=== PATIENT | male | born 1930 | race African-American/Black ===

== ENCOUNTER → 2016-04-17 | Outpatient (CLI) | payer MEDICARE ==
[2015-07-29 10:15] VITALS: BP 150/81
[~2016-04-17] MED LIST: GADOBUTROL 7.5 MMOL/7.5 ML VIAL IV ONE
[2016-04-17 11:05] LABS: GFR 86.3
--- NOTE | 2016-04-17 17:41 | RAD ---
PROCEDURE MRI of the brain to include the pituitary gland without and with contrast 04/17/2016 HISTORY History of pituitary macroadenoma. TECHNIQUE Unenhanced T1 weighted sagittal and axial and FLAIR, T2 weighted, diffusion weighted and gradient echo axial images of the brain were obtained. Thin section T1 weighted sagittal and coronal and T2 weighted sagittal and coronal images through the pituitary gland were obtained. After the intravenous administration of 7 cc of Gadavist, enhanced T1 weighted axial images of the brain were obtained. Thin section enhanced T1 weighted axial and coronal images through the pituitary gland were obtained. FINDINGS Comparison study is dated 04/25/2015. The patient is status post left frontal parietal craniotomy. There is generalized parenchymal atrophy. Patchy and several small scattered areas of abnormally increased signal intensity are seen within the periventricular and subcortical white matter both cerebral hemispheres on the FLAIR and T2 weighted images consistent with areas of mild small vessel ischemic disease. These are unchanged. A 4.6 centimeter arachnoid cyst is seen posterior to the midline cerebellum, unchanged. There is no significant associated mass effect. No acute parenchymal abnormality is seen. There is no MRI evidence of acute ischemia/infarction. No abnormal area of parenchymal contrast enhancement is noted. An enhancing sella/suprasellar mass is seen which extends to the right cavernous sinus. It measures 2.4 x 2 x 2.1 centimeters and transverse, AP and craniocaudal dimensions. It is consistent with a macroadenoma. It is not significantly changed when compared to the previous examination. Mild mucosal thickening is seen throughout the paranasal sinuses. There are minimal bilateral mastoid effusions. Normal flow voids are seen within the major vascular structures surrounding the brain parenchyma. IMPRESSION Stable MRI appearance of the 2.4 centimeter macroadenoma which extends to involve the right cavernous sinus. No acute parenchymal abnormality is seen. Electronically signed by: Haroon Kyle MD (Apr 17, 2016 17:40:09)
== END | disposition home or self-care (01) ==
LOC: MRI 12:47
PROVIDERS: ATTEND Neurological Surgery
DX: D35.2 Benign neoplasm of pituitary gland (principal); Z86.39 Personal history of other endocrine, nutritional and metabolic disease
CPT/HCPCS: 36415; 70553; 82565; A9585

== ENCOUNTER → 2017-02-22 | Outpatient (CLI) | payer MEDICARE ==
[2015-07-29 10:15] VITALS: BP 150/81
--- NOTE | 2017-02-22 13:27 | RAD ---
EXAM: Soft tissue ultrasound right groin. HISTORY: Right groin swelling. COMPARISON: 04/03/2011. FINDINGS: Sonographic evaluation of the right inguinal region of concern was performed. A right inguinal lymph node measures 3.1 x 1.1 cm. Has prominent fatty hilus and is likely reactive/benign. A mass in the right region measures 4.7 x 1.8 cm. The heating repair technician notes included bowel on real-time scanning, but this is not well demonstrated on these images. The previously noted left inguinal hernia on CT is not included on this study. A small fat-containing left inguinal hernia may be present. IMPRESSION: 1. Findings consistent with a fat-containing right inguinal hernia. The heating repair technician notes some included bowel loops, but these are not well seen on static images. 2. Suspect a small fat-containing left inguinal hernia. 3. CT could further define the anatomy if there is persistent concern.
== END | disposition home or self-care (01) ==
LOC: US 08:57
PROVIDERS: ATTEND Physician Assistant
DX: E04.2 Nontoxic multinodular goiter (principal); K40.90 Unilateral inguinal hernia, without obstruction or gangrene, not specified as recurrent; R19.09 Other intra-abdominal and pelvic swelling, mass and lump; R22.9 Localized swelling, mass and lump, unspecified
CPT/HCPCS: 76881

== ENCOUNTER → 2017-03-15 | Outpatient (CLI) | payer MEDICARE ==
[2015-07-29 10:15] VITALS: BP 150/81
[~2017-03-15] MED LIST changes: -GADOBUTROL 7.5 MMOL/7.5 ML VIAL IV ONE; +IOHEXOL 300 MG/ML 100ML VIAL. IV ONE
[2017-03-15 12:08] LABS: CREATININE 0.6 mg/dL (0.7-1.3); GFR 155.3
--- NOTE | 2017-03-15 16:51 | RAD ---
CT pelvis. Right groin mass. Technique: CT pelvis with 75 mL of Omnipaque 300 with multiplanar reformats. Comparison: Study from 2011. Findings: Diffuse atherosclerotic disease of the infrarenal aorta and bilateral iliac arteries with multiple areas of high-grade stenosis in the right external iliac, common femoral and proximal superficial femoral artery. No bowel obstruction. Diffuse colonic diverticulosis. Small fat-containing right inguinal hernia noted. No inguinal adenopathy. No pelvic adenopathy. Bladder within normal limits. Multiple metallic clips is seen in the prostatic bed likely prostatectomy. Degenerative changes are seen at the bilateral SI joints and visualized lower lumbar spine with facet arthropathy. Impression: 1. Small fat-containing right inguinal hernia. 2. Diffuse atherosclerotic disease of the infrarenal aorta and bilateral iliac arteries. 3. Colonic diverticulosis without diverticulitis. PQRS Compliance Statement: One or more of the following individualized dose reduction techniques were utilized for this examination: 1. Automated exposure control 2. Adjustment of the mA and/or kV according to patient size 3. Use of iterative reconstruction technique
== END | disposition home or self-care (01) ==
LOC: CT 11:40
PROVIDERS: ATTEND Surgery
DX: K40.90 Unilateral inguinal hernia, without obstruction or gangrene, not specified as recurrent (principal); K57.30 Diverticulosis of large intestine without perforation or abscess without bleeding; I70.0 Atherosclerosis of aorta
CPT/HCPCS: 36415; 74170; 82565; 84520; Q9967

== ENCOUNTER → 2018-05-07 | Outpatient (CLI) | payer MEDICARE ==
[2015-07-29 10:15] VITALS: BP 150/81
[~2018-05-07] MED LIST changes: +GADOBUTROL 10 MMOL/10 ML VIAL IV ONE; -IOHEXOL 300 MG/ML 100ML VIAL. IV ONE
--- NOTE | 2018-05-07 15:40 | KCIC ---
MRI Brain with and without contrast History: Pituitary adenoma Technique: Multiplanar, multi sequential pre and postcontrast MR imaging was performed of the brain, also dedicated images of the pituitary gland submitted. Comparison: April 17, 2016 Findings: There is again sellar and suprasellar mass, greatest dimension about 1.9 cm CC by 2.7 cm transverse by 1.7 cm AP. Size and morphology are similar. There is involvement of the right cavernous sinus, extent of mass between the right ophthalmic and cavernous internal carotid arteries, also extent inferior to the right cavernous internal carotid artery. Superior margin of the mass is about 0.1 cm inferior to the undersurface of the right optic nerve. Ventricular size is proportionate to the sulcal spaces. There is again [id number] supratentorial atrophy. There again has been left parietal craniotomy. There is no new intra-axial mass effect, midline shift, extra-axial fluid collection. There is no nodular parenchymal or leptomeningeal enhancement. There is again karla cisterna magna. There are again a couple tiny foci of FLAIR hypertense signal of the bifrontal white matter. There is negligible patchy bilateral ethmoid air cell mucosal thickening. There is small posterior right maxillary sinus mucous retention cyst about 1.1 cm. Impression: 1. Size of sellar and suprasellar mass eccentric to the right with involvement of the right cavernous sinus is stable, likely macroadenoma. 2. There is no new significant intracranial abnormality. There is again supratentorial atrophy. Electronically signed by: Juan Barnes MD (05/07/2018 3:35 PM) [id number]
== END | disposition home or self-care (01) ==
LOC: KCIC MRI 13:03
PROVIDERS: ATTEND Neurological Surgery
DX: D35.2 Benign neoplasm of pituitary gland (principal); J34.1 Cyst and mucocele of nose and nasal sinus
CPT/HCPCS: 70553; 82565; A9585

== ENCOUNTER → 2018-05-16 | Outpatient (CLI) | payer MEDICARE ==
[~2018-05-16] MED LIST changes: -GADOBUTROL 10 MMOL/10 ML VIAL IV ONE; +IOHEXOL 240 MG/ML 50ML VIAL. PO ONE; +IOHEXOL 300 MG/ML 100ML VIAL. IV ONE; +LISI10TA2 PO; +[UNRECOGNIZED DRUG - REMARK]
--- NOTE | 2018-05-16 14:07 | RAD ---
CT abdomen pelvis with contrast dated 05/16/2018. Comparison made to 03/15/2017. Clinical data indication: Weight loss. History of prostate cancer. TECHNIQUE: Contiguous axial imaging the abdomen and pelvis performed after the administration of 75 cc Omnipaque 300. One or more of the following individualized dose reduction techniques were utilized for this examination: 1. Automated exposure control 2. Adjustment of the mA and/or kV according to patient size 3. Use of iterative reconstruction technique. FINDINGS: Limited images of lung bases are clear. Heart size within normal limits. No pleural or pericardial effusion. Low-density lesion of the posterior right lobe liver on image 11 measures 1.1 cm, unchanged from August 2010 study. There is mild intrahepatic and extrahepatic biliary ductal dilatation to the level of the ampulla, increased from prior study. There is a small vague area of low density at the pancreatic head/uncinate process on axial image 25 that was not definitely present from prior exam. This measures about 9 mm maximum dimension. The gallbladder is distended without calcific stone or wall thickening. The pancreas is otherwise unremarkable. No significant inflammatory stranding surrounding the gland. Spleen is normal in size. Adrenal glands and kidneys are unremarkable. No hydronephrosis. Partially opacified GI tract normal in caliber and contour. No focal bowel wall thickening. There are scattered diverticula throughout the colon. No paracolonic inflammatory changes. The appendix is not clearly identified. No inflammatory changes in the right lower quadrant. Abdominal aorta normal in caliber. No retroperitoneal or mesenteric lymph node adenopathy. Images of pelvis show nondistended urinary bladder. The prostate gland is surgically absent. No free pelvic fluid or pelvic lymphadenopathy. Atherosclerotic changes appear to result in moderate to high-grade narrowing of the proximal common femoral artery on the right. Bone windows show no acute findings. Multilevel spondylosis. IMPRESSION: 1. Mild intrahepatic and extra hepatic biliary ductal dilatation, new from prior study. There is a questionable low density lesion of the pancreatic head/uncinate process measuring about 9 mm in size. Although this could represent a mild pancreatitis or groove pancreatitis, a developing pancreatic malignancy cannot be excluded. Correlate with laboratory values. Potentially a MRI may provide additional information. 2. There is a low-density lesion in the right lobe liver that is unchanged from Mar 2011 study and is likely benign. 3. Diverticulosis. 4. Status post prostatectomy. 5. Possible moderate to high-grade narrowing of the proximal common femoral artery on the right. Correlate clinically. Electronically signed by: Truong Fisher MD (05/16/2018 2:03 PM) [facility]
== END | disposition home or self-care (01) ==
LOC: CT 13:00
PROVIDERS: ATTEND Family Medicine
DX: K82.8 Other specified diseases of gallbladder (principal); K57.30 Diverticulosis of large intestine without perforation or abscess without bleeding; I70.201 Unspecified atherosclerosis of native arteries of extremities, right leg; Z85.46 Personal history of malignant neoplasm of prostate
CPT/HCPCS: 74177; Q9966; Q9967

== ENCOUNTER 2018-06-12 19:06 | Inpatient (IN) | payer MEDICARE ==
[~2018-06-12] VITALS: Ht 182.9 cm; Wt 60.8 kg
[2018-06-12] MEDS ORDERED: IV NORMAL SALINE 1000ML BAG 1,000 ML IV SCH (20:18)
[2018-06-12 20:38] LABS: CALCIUM 9.2 mg/dL (8.5-10.1); CREATININE 0.8 mg/dL (0.7-1.3); GFR 111.2; POTASSIUM 3.9 mmol/L (3.5-5.1)
[2018-06-12 20:45] LABS: BASO # 0.1 x10^3/uL (0.0-0.2); BASO % 1 % (0-3); EOS # 0.1 x10^3/uL (0.0-0.7); EOS % 2 % (0-3); HEMATOCRIT 31.7 % (39.0-53.0); HEMOGLOBIN 10.9 g/dL (13.0-17.5); LYMPH % 74 % (24-48); MEAN CORPUSCULAR HEMOGLOBIN 27 pg (25-35); MEAN CORPUSCULAR HGB CONC 35 g/dL (31-37); MEAN CORPUSCULAR VOLUME 79 fL (79-100); MONO # 0.1 x10^3/uL (0.0-1.1); MONO % 2 % (0-9); NEUT # 0.9 x10^3uL (1.8-7.7); NEUT % 21 % (31-73); PLATELET COUNT 208 x10^3/uL (140-400); RED CELL DISTRIBUTION WIDTH 18.8 % (11.5-14.5); WHITE BLOOD COUNT 4.1 x10^3/uL (4.0-11.0)
[2018-06-12 20:53] LABS: ALBUMIN 3.4 g/dL (3.4-5.0); TOTAL BILIRUBIN 23.9 mg/dL (0.2-1.0); TOTAL PROTEIN 7.2 g/dL (6.4-8.2)
[2018-06-12 21:07] LABS: DIRECT BILIRUBIN 18.6 mg/dL (0.0-0.2)
--- NOTE | 2018-06-12 21:29 | PHYS DOC ---
Past Medical History Past Medical History: Hypertension Past Surgical History: Other Additional Past Surgical Histo: prostate surgery Rt cancer 2002 Alcohol Use: None Drug Use: None Adult General Chief Complaint Chief Complaint: ABNORMAL LABS HPI HPI Patient is an 87-year-old male who presents to be evaluated for admission for abnormal lab values. Patient indicates that he has been losing weight for quite some time. He does indicate that at times he has some abdominal discomfort denies any abdominal pain at this time. He denies any chest pain or shortness of breath. He denies any nausea or vomiting. He states the weight loss is simply because he has no appetite. Review of Systems Review of Systems Constitutional: Denies fever or chills [] Respiratory: Denies cough or shortness of breath [] Cardiovascular: No additional information not addressed in HPI [] GI: Denies abdominal pain, nausea, vomiting or diarrhea [] Integument: Denies rash or skin lesions [] Neurologic: Denies headache, focal weakness or sensory changes [] All other systems were reviewed and found to be within normal limits, except as documented in this note. Current Medications Current Medications Current Medications Medications (Trade) Dose Ordered Sig/Jason Start Time Stop Time Status Last Admin Dose Admin Sodium Chloride 1,000 ml @ 125 mls/hr Q8H 06/12/18 21:24 06/13/18 21:23 06/12/18 23:39 125 MLS/HR Allergies Allergies Allergies Coded Allergies Type Severity Reaction Last Updated Verified No Known Drug Allergies 07/29/15 No Physical Exam Physical Exam Constitutional: Cachectic, no acute distress, non-toxic appearance. [] HENT: Normocephalic, atraumatic, bilateral external ears normal, oropharynx moist, no oral exudates, nose normal. [] Eyes: PERRLA, EOMI, conjunctiva normal, no discharge. [] Neck: Normal range of motion, no tenderness, supple, no stridor. [] Cardiovascular: Regular rate and rhythm[] Lungs & Thorax: Bilateral breath sounds clear to auscultation [] Abdomen: Bowel sounds normal, soft, no tenderness. [] Skin: Warm, dry, no erythema, no rash. [] Extremities: No tenderness, no cyanosis, no clubbing, ROM intact, no edema. [] Neurologic: Alert and oriented X 3, no focal deficits noted. [] Current Patient Data Vital Signs Vital Signs Date Time Temp Pulse Resp B/P (MAP) Pulse Ox O2 Delivery O2 Flow Rate FiO2 06/12/18 21:20 60 20 146/68 (94) 100 Room Air 06/12/18 19:49 96.7 96.7 Lab Values Laboratory Tests Test 06/12/18 20:00 White Blood Count 4.1 x10^3/uL (4.0-11.0) Red Blood Count 4.00 x10^6/uL (4.30-5.70) L Hemoglobin 10.9 g/dL (13.0-17.5) L Hematocrit 31.7 % (39.0-53.0) L Mean Corpuscular Volume 79 fL (79-100) Mean Corpuscular Hemoglobin 27 pg (25-35) Mean Corpuscular Hemoglobin Concent 35 g/dL (31-37) Red Cell Distribution Width 18.8 % (11.5-14.5) H Platelet Count 208 x10^3/uL (140-400) Neutrophils (%) (Auto) 21 % (31-73) L Lymphocytes (%) (Auto) 74 % (24-48) H Monocytes (%) (Auto) 2 % (0-9) Eosinophils (%) (Auto) 2 % (0-3) Basophils (%) (Auto) 1 % (0-3) Neutrophils # (Auto) 0.9 x10^3uL (1.8-7.7) L Lymphocytes # (Auto) 3.0 x10^3/uL (1.0-4.8) Monocytes # (Auto) 0.1 x10^3/uL (0.0-1.1) Eosinophils # (Auto) 0.1 x10^3/uL (0.0-0.7) Basophils # (Auto) 0.1 x10^3/uL (0.0-0.2) Sodium Level 137 mmol/L (136-145) Potassium Level 3.9 mmol/L (3.5-5.1) Chloride Level 97 mmol/L (98-107) L Carbon Dioxide Level 27 mmol/L (21-32) Anion Gap 13 (6-14) Blood Urea Nitrogen 12 mg/dL (8-26) Creatinine 0.8 mg/dL (0.7-1.3) Estimated GFR (Cockcroft-Gault) 111.2 Glucose Level 92 mg/dL (70-99) Calcium Level 9.2 mg/dL (8.5-10.1) Total Bilirubin 23.9 mg/dL (0.2-1.0) H Direct Bilirubin 18.6 mg/dL (0.0-0.2) H Aspartate Amino Transferase (AST) 387 U/L (15-37) H Alanine Aminotransferase (ALT) 249 U/L (16-63) H Alkaline Phosphatase 1107 U/L (46-116) H Total Protein 7.2 g/dL (6.4-8.2) Albumin 3.4 g/dL (3.4-5.0) Lipase 155 U/L (73-393) Laboratory Tests 06/12/18 20:00 Laboratory Tests 06/12/18 20:00 EKG EKG [] Radiology/Procedures Radiology/Procedures [] Course & Med Decision Making Course & Med Decision Making Pertinent Labs and Imaging studies reviewed. (See chart for details) [] Dragon Disclaimer Dragon Disclaimer This electronic medical record was generated, in whole or in part, using a voice recognition dictation system. Departure Departure Impression: Primary Impression: Jaundice Additional Impression: Elevated transaminase level Disposition: ADMITTED INPATIENT Admitting Physician: Rob Hatfield Condition: GOOD Referrals: ROB HATFIELD MD (PCP) Problem Qualifiers JORDYN WEI Jr. DO Jun 12, 2018 21:29
[2018-06-12] MEDS ORDERED: ONDANSETRON PF 4 MG/2 ML VIAL. IV PRN (21:30)
[2018-06-12] MEDS ORDERED: fentaNYL PF VIAL 100 MCG/2 ML VIAL IV PRN (21:30)
[2018-06-12] MEDS: IV NORMAL SALINE 1000ML BAG 1,000 ML IV SCH (23:39)
--- NOTE | 2018-06-12 23:40 | NUR ---
ADMISSION NOTE: Patient arrived to room 548 via wheelchair accompanied by ED staff. All belongings present. Bed low, locked, call light within reach. Educated patient on how to use call light. Admission questionnaire performed. IV fluids administered. Patient has no complaints at this time. Will continue to monitor.
[2018-06-13] VITALS (9 sets, daily range): BP systolic 97–156; BP diastolic 59–83
[2018-06-13] MEDS ORDERED: [UNRECOGNIZED DRUG - REMARK] (05:34)
[2018-06-13 07:17] LABS: BASO % 0 % (0-3); EOS % 1 % (0-3); HEMATOCRIT 26.4 % (39.0-53.0); HEMOGLOBIN 8.9 g/dL (13.0-17.5); LYMPH # 2.3 x10^3/uL (1.0-4.8); LYMPH % 68 % (24-48); MEAN CORPUSCULAR HEMOGLOBIN 26 pg (25-35); MEAN CORPUSCULAR HGB CONC 34 g/dL (31-37); MEAN CORPUSCULAR VOLUME 78 fL (79-100); MONO # 0.5 x10^3/uL (0.0-1.1); MONO % 15 % (0-9); NEUT # 0.5 x10^3uL (1.8-7.7); NEUT % 16 % (31-73); PLATELET COUNT 154 x10^3/uL (140-400); RED BLOOD COUNT 3.37 x10^6/uL (4.30-5.70); RED CELL DISTRIBUTION WIDTH 18.9 % (11.5-14.5); WHITE BLOOD COUNT 3.4 x10^3/uL (4.0-11.0)
[2018-06-13 07:46] LABS: ALBUMIN 2.5 g/dL (3.4-5.0); ALBUMIN/GLOBULIN RATIO 0.7 (1.0-1.7); CALCIUM 8.2 mg/dL (8.5-10.1); CREATININE 0.7 mg/dL (0.7-1.3); GFR 129.7; POTASSIUM 3.8 mmol/L (3.5-5.1); TOTAL BILIRUBIN 17.9 mg/dL (0.2-1.0); TOTAL PROTEIN 6.1 g/dL (6.4-8.2)
[2018-06-13] MEDS: IV NORMAL SALINE 1000ML BAG 1,000 ML IV SCH (07:58)
[2018-06-13] MEDS ORDERED: PHENYLEPHRINE 10 MG/ML VIAL. ONE (08:00)
[2018-06-13] MEDS ORDERED: fentaNYL PF VIAL 100 MCG/2 ML VIAL IV PRN ×4 (08:15→08:45)
[2018-06-13] MEDS ORDERED: MIDAZOLAM HCL/PF 2 MG/2 ML VIAL. IV PRN (08:15)
[2018-06-13] MEDS ORDERED: LIDOCAINE 1% PF 2 ML VIAL. ID PRN ×2 (08:15→08:45)
[2018-06-13] MEDS ORDERED: IV RINGERS,LACTATED 1000ML 1,000 ML IV SCH (08:42)
[2018-06-13] MEDS ORDERED: HYDROmorphone 2 MG/ML VIAL IV PRN (08:45)
[2018-06-13] MEDS ORDERED: MORPHINE SULFATE 2 MG/ML VIAL. IV PRN (08:45)
[2018-06-13] MEDS ORDERED: ONDANSETRON PF 4 MG/2 ML VIAL. IV PRN (08:45)
[2018-06-13] MEDS ORDERED: PROCHLORPERAZINE 10 MG/2 ML VIAL. IV PRN (08:45)
--- NOTE | 2018-06-13 08:50 | PDOC ---
Provider Note Provider Note [id number] STACEY REESE MD Jun 13, 2018 08:50
--- NOTE | 2018-06-13 09:14 | HP ---
ADMIT DATE: CHIEF COMPLAINT: Weakness and jaundice. HISTORY OF PRESENT ILLNESS: An 87-year-old black male, well known to our practice, presented several weeks ago with weakness and fatigue. He was found to have very high bilirubin and CT scan raised the question of a possible enlargement of the head of the pancreas. CA 19-9 in the office was normal and the patient has not followed up well as suggested for further testing, including MRI of the abdomen and for further lab. He came into the ER as a direct admission, primarily to get these studies accomplished and try to make a definite diagnosis. He also has a history of dementia, takes no meds at home. No other serious medical problems known. PAST MEDICAL HISTORY: Unremarkable. ALLERGIES: No allergies. MEDICATIONS: No medications. SOCIAL HISTORY: Unknown to me at this time. He has a son who is his primary campground caretaker. FAMILY HISTORY: Unremarkable. REVIEW OF SYSTEMS: No other complaints except with fairly significant weight loss in the last several months, unknown amount. OBJECTIVE: ENT: Sclerae are very icteric, otherwise unremarkable. NECK: No masses, nodes or bruits. LUNGS: Clear. ABDOMEN: Tender in the right upper quadrant. No definite masses or guarding are felt. EXTREMITIES: Reasonably good pedal and radial pulses. No joint or skin lesions. NEUROLOGIC: Physiologic. No asterixis, no focal findings. He is definitely mildly confused about the situation. ASSESSMENT: Weight loss, obstructive jaundice and possible pancreatic head mass. At his age with his weight loss, certainly a malignant diagnosis such as pancreatic or common ductal cancer is most likely diagnosis at this time. Underlying dementia is ongoing. PLAN: Abdominal sonogram, hydration, and GI consultation and anticipating a need for ERCP and possible stenting. STACEY REESE MD DR: AIDEN/rob JOB#: [id number] / [id number]
--- NOTE | 2018-06-13 09:30 | PDOC2 ---
GI CONSULT Reason For Consult: Elevated transaminases and bili HPI: HPI: 87 y/o male - d/w Dr. Hatfield this morning. Has been seeing Dr. Ramirez but difficulty w/ follow-up w/ dementia. Pt reports loss of appetite and weight loss, denies pain. Labs notable microcytic anemia, hypobilirubinemia, and elevated Alk Phos. Normal plt. Pending INR. Dr. Hatfield reports CA19-[address] from last month showed mild intra and extrahepatic biliary ductal dilatation , possible lesion in pancreatic head, and stable right hepatic lesion. Abd US in 2016 was unrevealing. Looks like he had EGD w/ esophageal dilation w/ Dr. Olsen in 2016 - procedure report unavailable. PMH: PMH: per chart - HTN, prostate cancer, dementia, right inguinal hernia left knee surgery, prostatectomy FH: Family History: No pertinent hx Social History: Smoke: No ALCOHOL: other (used to drink scotch) ROS: Per HPI Vitals: Vitals: Vital Signs Date Time Temp Pulse Resp B/P (MAP) Pulse Ox O2 Delivery O2 Flow Rate FiO2 06/13/18 07:00 98.1 51 16 97/60 (72) 98 Room Air 98.1 Labs: Labs: Laboratory Tests Test 06/12/18 20:00 06/13/18 06:40 White Blood Count 4.1 x10^3/uL (4.0-11.0) 3.4 x10^3/uL (4.0-11.0) Red Blood Count 4.00 x10^6/uL (4.30-5.70) 3.37 x10^6/uL (4.30-5.70) Hemoglobin 10.9 g/dL (13.0-17.5) 8.9 g/dL (13.0-17.5) Hematocrit 31.7 % (39.0-53.0) 26.4 % (39.0-53.0) Mean Corpuscular Volume 79 fL (79-100) 78 fL (79-100) Mean Corpuscular Hemoglobin 27 pg (25-35) 26 pg (25-35) Mean Corpuscular Hemoglobin Concent 35 g/dL (31-37) 34 g/dL (31-37) Red Cell Distribution Width 18.8 % (11.5-14.5) 18.9 % (11.5-14.5) Platelet Count 208 x10^3/uL (140-400) 154 x10^3/uL (140-400) Neutrophils (%) (Auto) 21 % (31-73) 16 % (31-73) Lymphocytes (%) (Auto) 74 % (24-48) 68 % (24-48) Monocytes (%) (Auto) 2 % (0-9) 15 % (0-9) Eosinophils (%) (Auto) 2 % (0-3) 1 % (0-3) Basophils (%) (Auto) 1 % (0-3) 0 % (0-3) Neutrophils # (Auto) 0.9 x10^3uL (1.8-7.7) 0.5 x10^3uL (1.8-7.7) Lymphocytes # (Auto) 3.0 x10^3/uL (1.0-4.8) 2.3 x10^3/uL (1.0-4.8) Monocytes # (Auto) 0.1 x10^3/uL (0.0-1.1) 0.5 x10^3/uL (0.0-1.1) Eosinophils # (Auto) 0.1 x10^3/uL (0.0-0.7) 0.0 x10^3/uL (0.0-0.7) Basophils # (Auto) 0.1 x10^3/uL (0.0-0.2) 0.0 x10^3/uL (0.0-0.2) Sodium Level 137 mmol/L (136-145) 140 mmol/L (136-145) Potassium Level 3.9 mmol/L (3.5-5.1) 3.8 mmol/L (3.5-5.1) Chloride Level 97 mmol/L (98-107) 105 mmol/L (98-107) Carbon Dioxide Level 27 mmol/L (21-32) 25 mmol/L (21-32) Anion Gap 13 (6-14) 10 (6-14) Blood Urea Nitrogen 12 mg/dL (8-26) 9 mg/dL (8-26) Creatinine 0.8 mg/dL (0.7-1.3) 0.7 mg/dL (0.7-1.3) Estimated GFR (Cockcroft-Gault) 111.2 129.7 Glucose Level 92 mg/dL (70-99) 68 mg/dL (70-99) Calcium Level 9.2 mg/dL (8.5-10.1) 8.2 mg/dL (8.5-10.1) Total Bilirubin 23.9 mg/dL (0.2-1.0) 17.9 mg/dL (0.2-1.0) Direct Bilirubin 18.6 mg/dL (0.0-0.2) Aspartate Amino Transf (AST/SGOT) 387 U/L (15-37) 293 U/L (15-37) Alanine Aminotransferase (ALT/SGPT) 249 U/L (16-63) 201 U/L (16-63) Alkaline Phosphatase 1107 U/L (46-116) 868 U/L (46-116) Total Protein 7.2 g/dL (6.4-8.2) 6.1 g/dL (6.4-8.2) Albumin 3.4 g/dL (3.4-5.0) 2.5 g/dL (3.4-5.0) Lipase 155 U/L (73-393) BUN/Creatinine Ratio 13 (6-20) Albumin/Globulin Ratio 0.7 (1.0-1.7) Allergies: Coded Allergies: No Known Drug Allergies (Unverified , 07/29/15) Medications: Current Medications Medications (Trade) Dose Ordered Sig/Jason Route PRN Reason Start Time Stop Time Status Last Admin Dose Admin Sodium Chloride 1,000 ml @ 1,000 mls/hr Q1H IV 06/12/18 20:18 06/12/18 21:17 DC 06/12/18 20:37 Sodium Chloride 1,000 ml @ 125 mls/hr Q8H IV 06/12/18 21:24 06/13/18 08:48 DC 06/13/18 07:58 Imaging: Imaging: CT A/P 05/16/18 FINDINGS: Limited images of lung bases are clear. Heart size within normal limits. No pleural or pericardial effusion. Low-density lesion of the posterior right lobe liver on image 11 measures 1.1 cm , unchanged from August 2010 study. There is mild intrahepatic and extrahepatic biliary ductal dilatation to the level of the ampulla, increased from prior study. There is a small vague area of low density at the pancreatic head/ uncinate process on axial image 25 that was not definitely present from prior exam. This measures about 9 mm maximum dimension. The gallbladder is distended without calcific stone or wall thickening.The pancreas is otherwise unremarkable. No significant inflammatory stranding surrounding the gland. Spleen is normal in size. Adrenal glands and kidneys are unremarkable. No hydronephrosis.Partially opacified GI tract normal in caliber and contour. No focal bowel wall thickening. There are scattered diverticula throughout the colon. No paracolonic inflammatory changes. The appendix is not clearly identified. No inflammatory changes in the right lower quadrant. Abdominal aorta normal in caliber. No retroperitoneal or mesenteric lymph node adenopathy. Images of pelvis show nondistended urinary bladder. The prostate gland is surgically absent. No free pelvic fluid or pelvic lymphadenopathy. Atherosclerotic changes appear to result in moderate to high-grade narrowing of the proximal common femoral artery on the right. Bone windows show no acute findings. Multilevel spondylosis. IMPRESSION: 1. Mild intrahepatic and extra hepatic biliary ductal dilatation, new from prior study. There is a questionable low density lesion of the pancreatic head/ uncinate process measuring about 9 mm in size. Although this could represent a mild pancreatitis or groove pancreatitis, a developing pancreatic malignancy cannot be excluded. Correlate with laboratory values. Potentially a MRI may provide additional information. 2. There is a low-density lesion in the right lobe liver that is unchanged from Mar 2011 study and is likely benign. 3. Diverticulosis. 4. Status post prostatectomy. 5. Possible moderate to high-grade narrowing of the proximal common femoral artery on the right. Correlate clinically. Abd US 12/09/15 IMPRESSION: No bile duct dilation. No evidence of splenomegaly. PE: GEN: NAD, thin HEENT: +sclerae icteric LUNGS: CTAB HEART: bradycardic ABD: NABS, non-distended, non-tender, fullness RUQ EXTREMITY: No edema SKIN: No rashes, no jaundice NEURO/PSYCH: A & O 3 - probably forgetful A/P: A/P: Weight loss, anorexia Obstructive jaundice Abnormal CT - last month w/ biliary dilatation and possible pancreatic lesion H/o esophageal dilation CRC screen - unclear Anemia Dementia, h/o prostate cancer -- D/w RN - pt has signed ERCP consents. I also called his son Haroon and left a message. Will plan to proceed w/ ERCP this morning. ROZINA GONZALEZ Jun 13, 2018 09:30
[2018-06-13 09:56] LABS: PROTHROMBIN TIME PATIENT 13.7 SEC (11.7-14.0)
[2018-06-13] MEDS: IV RINGERS,LACTATED 1000ML 1,000 ML IV SCH ×2 (10:12→16:04)
--- NOTE | 2018-06-13 10:40 | EKG ---
[facility] [address] [place] [id number] Test Date: 2018-06-12 Test Time: 20:03:56 Pat Name: DARRELL REESE Department: Room: 548 1 Gender: M Career Manager: : [id number] Requested By: JORDYN WEI Order Number: [id number] Reading MD: Jone Alan MD Measurements Intervals [place] Rate: 69 P: -90 NM: 134 QRS: -44 QRSD: 84 T: 6 QT: 458 QTc: 492 Interpretive Statements PROBABLE SR PVC'S Electronically Signed On 06-17-2018 7:58:15 [employer] by Jone Alan MD
[2018-06-13 10:43] LABS: % BASOS 1 % (0-3); % EOS 1 % (0-5); % LYMPHS 36 % (24-48); % MONOS 1 % (0-10); % SEGS 61 % (35-66); ANISOCYTOSIS MOD; TARGET CELLS PRESENT
[2018-06-13 10:44] LABS: PLT ESTIMATE DECREASED (ADEQUATE)
[2018-06-13] MEDS ORDERED: LIDOCAINE 2% PF 5 ML VIAL. ONE (10:46)
[2018-06-13] MEDS ORDERED: SUCCINYLCHOLINE 200 MG/10 ML VIAL. ONE (10:46)
[2018-06-13] MEDS ORDERED: PROPOFOL 20 ML IV ONE (10:46)
[2018-06-13] MEDS ORDERED: FAMOTIDINE 20 MG/2 ML VIAL ONE (10:46)
[2018-06-13] MEDS ORDERED: ONDANSETRON PF 4 MG/2 ML VIAL. ONE (10:46)
[2018-06-13] MEDS ORDERED: DEXAMETHASONE SOD PHOS 20 MG/5 ML VIAL. ONE (10:46)
[2018-06-13] MEDS ORDERED: IOHEXOL 300 MG/ML 100ML VIAL. ONE (10:48)
--- NOTE | 2018-06-13 10:53 | NUR ---
SW following for discharge planning. Discussed with RN, pt is from home with . RN advised no SW needs at this time. SW will continue to follow.
--- NOTE | 2018-06-13 12:12 | PDOC4 ---
Operative Note Operative Note ERCP with sphincterotomy/stent placment/brush cytology Meds propofol per anesthesia Pre-op dx jaundice/abnl cT scan post-op dx biliary stricture consistent pancreatic malignancy s/p brush cytology and 10 Fr 12 cm stent placement plan advance diet and activity in am LFTS/amylase/lipase in am JILLIAN FAUSTIN MD Jun 13, 2018 12:12
--- NOTE | 2018-06-13 12:29 | RAD ---
C-arm fluoroscopy with fluoroscopic spot views Clinical indications: Jaundice. Elevated liver enzymes. ERCP. Total fluoroscopic time: 3.56 minutes. Total fluoroscopic spot views: 7. IMPRESSION: Fluoroscopic spot views demonstrate cannulization and retrograde opacification of a dilated extrahepatic biliary tree with placement of a biliary stent. See operative report for full details. Electronically signed by: Mani Dean MD (06/13/2018 12:26 PM) [facility]
[2018-06-13] MEDS: POTASSIUM CL 20MEQ D5-0.45NACL 1,000 ML IV SCH ×2 (13:33→23:14)
--- NOTE | 2018-06-13 16:40 | RAD ---
Limited abdomen ultrasound study Clinical indications: Obstructive jaundice. FINDINGS: The gallbladder is distended with sludge. There is hypoechoic wall thickening of the gallbladder measuring 5 mm in thickness. The pancreas is poorly visualized due to overlying bowel gas. No focal aneurysmal dilatation of the abdominal aorta is seen. The intrahepatic portion of the IVC is patent. No hepatic mass is seen. The liver measures 15.2 cm in length. There is intrahepatic and extrahepatic biliary ductal dilatation. The extra hepatic bile duct measures 10 mm in caliber. The length of the right kidney is 10.1 cm. No hydronephrosis or renal mass or perinephric fluid collection is seen on this side. IMPRESSION: Gallbladder is distended with biliary sludge. Wall thickening of the gallbladder is seen consistent with cholecystitis. There is biliary ductal dilatation. This may be due to a distal common bile duct stone or obstruction. Electronically signed by: Mani Dean MD (06/13/2018 4:37 PM) [facility]
[2018-06-14 03:59] VITALS: BP 154/75
[2018-06-14 06:52] LABS: ALBUMIN 2.6 g/dL (3.4-5.0); ALBUMIN/GLOBULIN RATIO 0.6 (1.0-1.7); CALCIUM 8.3 mg/dL (8.5-10.1); CREATININE 0.8 mg/dL (0.7-1.3); DIRECT BILIRUBIN 8.4 mg/dL (0.0-0.2); GFR 111.2; POTASSIUM 4.1 mmol/L (3.5-5.1); TOTAL BILIRUBIN 10.7 mg/dL (0.2-1.0); TOTAL PROTEIN 6.8 g/dL (6.4-8.2)
[2018-06-14 07:00] VITALS: BP 157/85
--- NOTE | 2018-06-14 08:48 | PDOC ---
Progress Note ROS ROS No nausea No vomiting No pain No rash Vital Sign Vital Signs Vital Signs Date Time Temp Pulse Resp B/P (MAP) Pulse Ox O2 Delivery O2 Flow Rate FiO2 06/14/18 07:00 64 18 157/85 (109) 98 Room Air 06/14/18 03:59 97.7 97.7 06/13/18 12:32 4 Physical Exam PHYSICAL EXAM GENERAL: NAD, Alert HEENT: PERRL, OC/OP NECK: Supple, no JVD, no LN LUNGS: Clear HEART: S1S2, no gallop, no murmur ABD: Soft, NT, no organomegaly, no rebound EXT: No edema, no cyanosis VERTICAL PUNCH OPERATOR: Alert, oriented x 3, no focal neurologic deficit SKIN: No rash IV: ok Labs Lab Laboratory Tests Test 06/13/18 09:37 06/14/18 05:20 Prothrombin Time 13.7 SEC (11.7-14.0) Prothromb Time International Ratio 1.1 (0.8-1.1) Ammonia 14 mcmol/L (11-34) Sodium Level 138 mmol/L (136-145) Potassium Level 4.1 mmol/L (3.5-5.1) Chloride Level 104 mmol/L (98-107) Carbon Dioxide Level 24 mmol/L (21-32) Anion Gap 10 (6-14) Blood Urea Nitrogen 7 mg/dL (8-26) Creatinine 0.8 mg/dL (0.7-1.3) Estimated GFR (Cockcroft-Gault) 111.2 BUN/Creatinine Ratio 9 (6-20) Glucose Level 148 mg/dL (70-99) Calcium Level 8.3 mg/dL (8.5-10.1) Total Bilirubin 10.7 mg/dL (0.2-1.0) Direct Bilirubin 8.4 mg/dL (0.0-0.2) Aspartate Amino Transf (AST/SGOT) 200 U/L (15-37) Alanine Aminotransferase (ALT/SGPT) 181 U/L (16-63) Alkaline Phosphatase 895 U/L (46-116) Total Protein 6.8 g/dL (6.4-8.2) Albumin 2.6 g/dL (3.4-5.0) Albumin/Globulin Ratio 0.6 (1.0-1.7) Amylase Level 80 U/L (25-115) Lipase 108 U/L (73-393) Objective Assessment An 87 years old male patient with 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 Liver function tests trending down. Plan Plan of Care * Continue with supportive care. * Advance diet as tolerated. * Monitor LFTs. * Await for cytology report. * Discuss with patient and family regarding goal of care to help guide further management. Thank you for involving us in the care of this interesting patient. Nutrition Consultation Dietary Evaluation: Recommendations by RD: Increase Calorie Intake, Protein supplementation Comments: ensure tid Expected Outcomes/Goals: to meet > 75% est nutr needs Interpretation of weight loss: >5% in 1 month Malnutrition Findings: Body Fat Depletion (Non Severe: Mild Depletion Weight Status: Underweight PARMINDER BLANTON MD Jun 14, 2018 08:48
[2018-06-14] MEDS: POTASSIUM CL 20MEQ D5-0.45NACL 1,000 ML IV SCH ×3 (09:39→20:21)
--- NOTE | 2018-06-14 10:35 | PDOC ---
Subjective: Subjective: Patient was examined at bed side. No acute events over night. He reports he lost more than 27 ibs in the last few months. 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 No acute events overnight with no evidence of cholangitis. Liver function tests trending down. Plan of Care * Continue with supportive care. * Advance diet as tolerated. * Monitor LFTs. * Await for cytology report. * Discuss with patient and family regarding goal of care to help guide further management. Thank you for involving us in the care of this interesting patient,. PARMINDER BLANTON MD Jun 14, 2018 10:35
[2018-06-14 11:19] VITALS: BP 149/85
[2018-06-14 15:00] VITALS: BP 145/89
--- NOTE | 2018-06-14 15:00 | NUR ---
Pt reporting abdominal discomfort with tightness, nausea, abdominal pain. Assisted to sit up in chair, given call light and gonzales for nausea. Pt then began spitting dark yellow-brown bile and sputum into gonzales. Call to Dr. Olsen/troy Cisneros to give zofran 4mg Q8hrs, call to PCP for pain control. Diet reduced to clears again.
[2018-06-14] MEDS ORDERED: MORPHINE SULFATE 2 MG/ML VIAL. IV PRN (16:00)
[2018-06-14] MEDS ORDERED: ONDANSETRON PF 4 MG/2 ML VIAL. IV PRN (16:15)
--- NOTE | 2018-06-14 19:21 | RAD ---
One view abdomen pelvis HISTORY: Abdominal pain and distention and nausea Supine AP view abdomen pelvis There is multiple dilated air-filled loops of small bowel. There is a relative paucity of colonic bowel gas. There is a stent in the common bile duct. There is no obvious free air on this supine view. There is multiple surgical clips in the pelvis. IMPRESSION: Abnormal bowel gas pattern consistent with a mid small bowel obstruction. Electronically signed by: Dylan Hamlin III, MD (06/14/2018 7:18 PM) [id number]
[2018-06-14 19:59] VITALS: BP 160/84
--- NOTE | 2018-06-14 21:33 | PN ---
DATE: 06/14/2018 LOCATION: He is in room 548. SUBJECTIVE: The patient is awake, alert, states he feels better. He is very pleasant, wonders why his urine became brown all of a sudden and I have explained to him the obstructive jaundice and that a stent has been placed and with labs looking better this morning that it should resolve and he should feel better. I have told him at this point in time we do not know for sure what is going on there, but there is a suspicion of malignancy. OBJECTIVE: Vital signs are stable. He is afebrile. He is awake and alert. LABORATORY DATA: Liver function tests are decreasing this morning with bilirubin down to 8.4 from 18 yesterday. Transaminases are decreasing as well as the alk phosphatase. ERCP note is appreciated with brushings and washings done and stent placement. No definite stone noted. His coagulations were normal upon admission. IMPRESSION: 1. Obstructive jaundice, improving after stent placement, likely due to malignancy with pathology pending. 2. Weight loss. 3. History of dementia, which would seem to be mild as he was quite interactive at this point in time. PLAN: At this point, we would plan on awaiting results of pathology with plans to follow at that point in time. NERY WILLSON MD DR: ELENA/rob JOB#: [id number] / [id number]
[2018-06-14 23:59] VITALS: BP 135/76
[2018-06-15 03:00] VITALS: BP 140/76
[2018-06-15 05:41] LABS: ALBUMIN 2.7 g/dL (3.4-5.0); DIRECT BILIRUBIN 6.6 mg/dL (0.0-0.2); TOTAL BILIRUBIN 8.5 mg/dL (0.2-1.0); TOTAL PROTEIN 6.8 g/dL (6.4-8.2)
[2018-06-15] MEDS: POTASSIUM CL 20MEQ D5-0.45NACL 1,000 ML IV SCH ×2 (06:24→16:39)
[2018-06-15 07:17] VITALS: BP 137/77
--- NOTE | 2018-06-15 09:32 | PDOC ---
Subjective: Subjective: Patient was seen and examined this morning. He reports the pain that he had yesterday in the afternoon has improved. No nausea or vomiting this morning. He had bowel movement over night. Objective: Vital Signs: Vital Signs Date Time Temp Pulse Resp B/P (MAP) Pulse Ox O2 Delivery O2 Flow Rate FiO2 06/15/18 08:00 Room Air 06/15/18 07:17 98.2 69 18 137/77 (97) 98 98.2 Imaging: [facility] [address] [place] [address] IMAGING REPORT Signed PATIENT: DARRELL REESE ACCOUNT: [id number] : 1930 LOCATION: [facility]TH AGE: 87 SEX: M EXAM STATUS: ADM IN ORD. PHYSICIAN: JILLIAN FAUSTIN MD REASON: abdominal pain, distention, nausea PROCEDURE: KUB One view abdomen pelvis HISTORY: Abdominal pain and distention and nausea Supine AP view abdomen pelvis There is multiple dilated air-filled loops of small bowel. There is a relative paucity of colonic bowel gas. There is a stent in the common bile duct. There is no obvious free air on this supine view. There is multiple surgical clips in the pelvis. IMPRESSION: Abnormal bowel gas pattern consistent with a mid small bowel obstruction. Electronically signed by: Nina Beckett III, MD (06/14/2018 7:18 PM) [id number] DICTATED and SIGNED BY: NINA BECKETT III, MD DATE: 06/14/181914 PE: GEN: NAD HEENT: Atraumatic, PERRLA LUNGS: CTAB HEART: RRR, no murmurs ABD: Has old lower midline surgical scar. 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 No acute events overnight with no evidence of cholangitis. Liver function tests trending down. Patient had abdominal pain, nausea and vomiting yesterday. KUB done 06/14 was notable for abnormal bowel gas pattern consistent with a mid small bowel obstruction. However, he is doing well with no pain this morning. He had bowel movement overnight. No nausea or vomting this morning. Has soft abdomen with no tenderness or guarding. Plan of Care * Continue with supportive care. * CLD * Encourage to ambulate. * IVFs * Monitor lytes and replace as needed. * Monitor LFTs. * Await for cytology report. * Discuss with patient and family regarding goal of care to help guide further management. Thank you for involving us in the care of this interesting patient,. PARMINDER BLANTON MD Jun 15, 2018 09:32
[2018-06-15 11:04] VITALS: BP 132/75
[2018-06-15 15:00] VITALS: BP 130/70
[2018-06-15 19:00] VITALS: BP 132/73
[2018-06-15 23:00] VITALS: BP 123/63
[2018-06-16] MEDS: POTASSIUM CL 20MEQ D5-0.45NACL 1,000 ML IV SCH ×2 (02:30→14:38)
[2018-06-16 03:00] VITALS: BP 121/61
--- NOTE | 2018-06-16 06:04 | PN ---
DATE: 06/15/2018 LOCATION: He is in room 548. SUBJECTIVE: The patient has just had a little bit of vomiting, but overall states he has felt good for most of the day. He has ongoing anorexia per nursing and nursing has no serious concerns. OBJECTIVE: VITAL SIGNS: Stable. He is afebrile. O2 sats remained good on room air. CHEST: Clear. HEART: Regular. ABDOMEN: Benign. Liver function tests including bilirubin continue to fall slowly. He does appear less jaundiced. IMPRESSION: 1. Biliary obstruction with jaundice, likely due to malignant disease with biopsies pending. 2. Weight loss. 3. History of dementia. PLAN: Continue present care. We will continue to follow labs with the anemia since admission. I will recheck another CBC in the morning. Otherwise, follow labs and await biopsy reports for definitive treatment. NERY WILLSON MD DR: ELENA/rob JOB#: [id number] / [id number]
[2018-06-16 07:00] VITALS: BP 118/55
[2018-06-16 08:50] LABS: BASO % 0 % (0-3); EOS # 0.1 x10^3/uL (0.0-0.7); EOS % 2 % (0-3); HEMATOCRIT 30.1 % (39.0-53.0); LYMPH # 1.1 x10^3/uL (1.0-4.8); LYMPH % 27 % (24-48); MEAN CORPUSCULAR HEMOGLOBIN 27 pg (25-35); MEAN CORPUSCULAR HGB CONC 33 g/dL (31-37); MEAN CORPUSCULAR VOLUME 82 fL (79-100); MONO # 0.3 x10^3/uL (0.0-1.1); MONO % 7 % (0-9); NEUT # 2.7 x10^3uL (1.8-7.7); NEUT % 65 % (31-73); PLATELET COUNT 167 x10^3/uL (140-400); RED BLOOD COUNT 3.68 x10^6/uL (4.30-5.70); RED CELL DISTRIBUTION WIDTH 19.6 % (11.5-14.5); WHITE BLOOD COUNT 4.2 x10^3/uL (4.0-11.0)
--- NOTE | 2018-06-16 09:02 | PDOC ---
SUBJECTIVE Subjective Denies pain. Continues to have diarrhea 2-3 times daily per pt. Cdiff pending. OBJECTIVE Objective Reviewed. Vital Signs Vital Signs Date Time Temp Pulse Resp B/P (MAP) Pulse Ox O2 Delivery O2 Flow Rate FiO2 06/16/18 07:00 97.8 63 16 118/55 (76) 96 Room Air 97.8 06/16/18 03:00 98.0 67 18 121/61 (81) 96 Room Air 4.0 98.0 06/15/18 23:00 98.6 65 18 123/63 (83) 98 Room Air 4.0 98.6 06/15/18 19:00 98.6 66 18 132/73 (92) 98 Room Air 4.0 98.6 06/15/18 15:00 98.0 78 18 130/70 (90) 95 Room Air 98.0 06/15/18 11:04 98.0 75 18 132/75 (94) 95 Room Air 98.0 I & O Intake and Output 06/16/18 06:59 Intake Total 1200 ml Balance 1200 ml Intake Oral 200 ml IV Total 1000 ml # Voids 2 # Bowel Movements 4 PHYSICAL EXAM Physical Exam Alert, cachectic RRR CTAB No edema Calm, cooperative ASSESSMENT/PLAN Assessment/Plan Obstructive jaundice, likely due to malignancy, biopsies pending. Cachexia Mild cognitive deficit H/o prostate cancer, in remission for many years Bili continues to improve s/p stent placement Await biopsies Palliative care consult COMMENT Lab Laboratory Tests Test 06/16/18 07:00 White Blood Count 4.2 x10^3/uL (4.0-11.0) Red Blood Count 3.68 x10^6/uL (4.30-5.70) Hemoglobin 10.0 g/dL (13.0-17.5) Hematocrit 30.1 % (39.0-53.0) Mean Corpuscular Volume 82 fL (79-100) Mean Corpuscular Hemoglobin 27 pg (25-35) Mean Corpuscular Hemoglobin Concent 33 g/dL (31-37) Red Cell Distribution Width 19.6 % (11.5-14.5) Platelet Count 167 x10^3/uL (140-400) Neutrophils (%) (Auto) 65 % (31-73) Lymphocytes (%) (Auto) 27 % (24-48) Monocytes (%) (Auto) 7 % (0-9) Eosinophils (%) (Auto) 2 % (0-3) Basophils (%) (Auto) 0 % (0-3) Neutrophils # (Auto) 2.7 x10^3uL (1.8-7.7) Lymphocytes # (Auto) 1.1 x10^3/uL (1.0-4.8) Monocytes # (Auto) 0.3 x10^3/uL (0.0-1.1) Eosinophils # (Auto) 0.1 x10^3/uL (0.0-0.7) Basophils # (Auto) 0.0 x10^3/uL (0.0-0.2) Nutrition Consultation Dietary Evaluation: Recommendations by RD: Increase Calorie Intake, Protein supplementation Comments: ensure tid Expected Outcomes/Goals: to meet > 75% est nutr needs Interpretation of weight loss: >5% in 1 month Malnutrition Findings: Body Fat Depletion (Non Severe: Mild Depletion Weight Status: Underweight ETHEL REEVES MD Jun 16, 2018 09:02
[2018-06-16 09:23] LABS: ALBUMIN 2.3 g/dL (3.4-5.0); ALBUMIN/GLOBULIN RATIO 0.6 (1.0-1.7); CALCIUM 7.5 mg/dL (8.5-10.1); CREATININE 0.8 mg/dL (0.7-1.3); DIRECT BILIRUBIN 5.3 mg/dL (0.0-0.2); GFR 111.2; POTASSIUM 3.7 mmol/L (3.5-5.1); TOTAL BILIRUBIN 6.4 mg/dL (0.2-1.0); TOTAL PROTEIN 6.2 g/dL (6.4-8.2)
[2018-06-16 11:09] VITALS: BP 117/68
--- NOTE | 2018-06-16 11:39 | PDOC ---
Objective: Objective: Reviewed w/ RNs - received in report he was to be NPO per GI but has multiple diets ordered (?), has significant diarrhea, ate 25% of dinner last night. Vital Signs: Vital Signs Date Time Temp Pulse Resp B/P (MAP) Pulse Ox O2 Delivery O2 Flow Rate FiO2 06/16/18 11:09 98.1 65 18 117/68 (84) 98 Room Air 98.1 06/16/18 03:00 4.0 Labs: Laboratory Tests Test 06/16/18 07:00 White Blood Count 4.2 x10^3/uL Red Blood Count 3.68 x10^6/uL Hemoglobin 10.0 g/dL Hematocrit 30.1 % Mean Corpuscular Volume 82 fL Mean Corpuscular Hemoglobin 27 pg Mean Corpuscular Hemoglobin Concent 33 g/dL Red Cell Distribution Width 19.6 % Platelet Count 167 x10^3/uL Neutrophils (%) (Auto) 65 % Lymphocytes (%) (Auto) 27 % Monocytes (%) (Auto) 7 % Eosinophils (%) (Auto) 2 % Basophils (%) (Auto) 0 % Neutrophils # (Auto) 2.7 x10^3uL Lymphocytes # (Auto) 1.1 x10^3/uL Monocytes # (Auto) 0.3 x10^3/uL Eosinophils # (Auto) 0.1 x10^3/uL Basophils # (Auto) 0.0 x10^3/uL Sodium Level 135 mmol/L Potassium Level 3.7 mmol/L Chloride Level 102 mmol/L Carbon Dioxide Level 24 mmol/L Anion Gap 9 Blood Urea Nitrogen 4 mg/dL Creatinine 0.8 mg/dL Estimated GFR (Cockcroft-Gault) 111.2 BUN/Creatinine Ratio 5 Glucose Level 59 mg/dL Calcium Level 7.5 mg/dL Total Bilirubin 6.4 mg/dL Direct Bilirubin 5.3 mg/dL Aspartate Amino Transf (AST/SGOT) 113 U/L Alanine Aminotransferase (ALT/SGPT) 130 U/L Alkaline Phosphatase 698 U/L Total Protein 6.2 g/dL Albumin 2.3 g/dL Albumin/Globulin Ratio 0.6 PE: GEN: NAD NEURO/PSYCH: sleeping, not awakened A/P: Obstructive jaundice, biliary stricture, concern for pancreatic malignancy S/p ERCP w/ brushings (results pending) and stent placement on 06/13/18 - bili improving Abnormal KUB on 06/14 Diarrhea - C Diff pending -- It's unclear what happened w/ NPO order but he tolerated PO yesterday w/o n/v and has been stooling. Seems reasonable to resume clears and recheck KUB to settle the issue. If tolerates and x-ray is unrevealing, ADAT. Await palliative care discussion, brushing results, and C Diff results. ROZINA GONZALEZ Jun 16, 2018 11:39
--- NOTE | 2018-06-16 12:08 | NUR ---
SW following. Discussed with RN, RN advised Palliative consult has been entered. SW will continue to follow for discharge planning.
[2018-06-16] MEDS ORDERED: LISI10TA2 PO (12:51)
--- NOTE | 2018-06-16 12:52 | PDOC2 ---
PALLIATIVE CARE Palliative Care Note Palliative Care Consult requested by Dr. Ramirez to address goals of care Medical Condition per medical record ?Pancreatic Ca Bx. pending. diarrhea --c-diff pending. Obstructive jaundice, likely due to malignancy, Cachexia Mild cognitive deficit H/o prostate cancer, in remission for many years Bili continues to improve s/p stent placement Met with patient. Alert. Discussed medical condition. Will need input from son. Patient states is patient at [facility]. Code Status; Full Code. Attempted to reach Haroon/son [phone]. Message to return call. SAMIRA BUCIO Jun 16, 2018 12:52
--- NOTE | 2018-06-16 14:14 | RAD ---
EXAM: Abdomen acute complete. HISTORY: C. Difficile. Small bowel obstruction. COMPARISON: CT dated 05/16/2018. FINDINGS: A frontal view of the chest and frontal upright and supine views of the abdomen are obtained. There are prominent air-filled loops of small bowel throughout the abdomen. There is a delay stent overlying the right upper and mid abdomen. There are multiple clips overlying the pelvis. There is no free air. There is a small nodular opacity overlying the right upper lobe which appears to be partially calcified, likely a granuloma. There is biapical pleural thickening likely due to scarring. There is a small nodule overlying the right lower lobe likely due to a nipple shadow. IMPRESSION: 1. Nonspecific air-filled small bowel throughout the abdomen. There is no transition point to suggest obstruction. 2. No acute pulmonary finding. 3. Small nodule overlying the right upper lobe, possibly due to a partially calcified granuloma. The absence of prior studies to confirm stability, sonographic follow-up can be performed to confirm stability. There is also a small nodule overlying the right lower lobe on a single projection which is likely due to a nipple shadow. Electronically signed by: Radha Chaudhari MD (06/16/2018 2:06 PM) [facility]
[2018-06-16 14:42] VITALS: BP 122/64
[2018-06-16 19:00] VITALS: BP 135/70
--- NOTE | 2018-06-16 21:30 | NUR ---
Glucose on am labs 59. Checked this evening BS at this time 50. Gave 4oz of OJ. Notified Dr. Ramirez. No new orders at this time. Rechecked BS 56, gave additional OJ and alberta. Pt stated that he was not able to eat or drink anymore because it was causing him to be nauseated.
[2018-06-16 22:32] VITALS: BP 151/88
[2018-06-17] MEDS: POTASSIUM CL 20MEQ D5-0.45NACL 1,000 ML IV SCH ×3 (02:10→22:35)
[2018-06-17 02:53] VITALS: BP 134/63
[2018-06-17 05:38] LABS: ALBUMIN 2.3 g/dL (3.4-5.0); DIRECT BILIRUBIN 4.6 mg/dL (0.0-0.2); TOTAL BILIRUBIN 5.6 mg/dL (0.2-1.0)
[2018-06-17 07:00] VITALS: BP 126/54
--- NOTE | 2018-06-17 08:03 | PDOC ---
SUBJECTIVE Subjective Feeling ok this AM. Diarrhea continuing. Cdiff was negative. Suspect diarrhea related to bile acids. Palliative consulted yesterday, final path still pending. OBJECTIVE Objective Reviewed. Vital Signs Vital Signs Date Time Temp Pulse Resp B/P (MAP) Pulse Ox O2 Delivery O2 Flow Rate FiO2 06/17/18 07:00 98.1 54 18 126/54 (78) Room Air 98.1 06/17/18 02:53 97.7 76 18 134/63 (86) 97 Room Air 97.7 06/16/18 22:32 97.7 74 18 151/88 (109) 99 Room Air 97.7 06/16/18 19:00 97.6 61 18 135/70 (91) 94 Room Air 97.6 06/16/18 14:42 96.8 67 16 122/64 (83) 100 Room Air 96.8 06/16/18 11:09 98.1 65 18 117/68 (84) 98 Room Air 98.1 I & O Intake and Output 06/17/18 07:00 Intake Total 2780 ml Balance 2780 ml Intake Oral 780 ml IV Total 2000 ml # Voids 4 # Bowel Movements 3 PHYSICAL EXAM Physical Exam Alert, cachectic RRR CTAB No edema Calm, cooperative ASSESSMENT/PLAN Assessment/Plan Obstructive jaundice, improved, likely due to malignancy, biopsies pending. Cachexia Mild cognitive deficit H/o prostate cancer, in remission for many years Mild asymptomatic hypoglycemia related to poor intake, on D5 IVF Diarrhea, suspect related to bile acids Bili continues to improve s/p stent placement Await biopsies Palliative care consulted, still awaiting final diagnosis Advance diet to full liquids then advance as tolerated COMMENT Lab Laboratory Tests Test 06/17/18 04:40 Total Bilirubin 5.6 mg/dL (0.2-1.0) Direct Bilirubin 4.6 mg/dL (0.0-0.2) Aspartate Amino Transf (AST/SGOT) 96 U/L (15-37) Alanine Aminotransferase (ALT/SGPT) 112 U/L (16-63) Alkaline Phosphatase 619 U/L (46-116) Total Protein 6.0 g/dL (6.4-8.2) Albumin 2.3 g/dL (3.4-5.0) Nutrition Consultation Dietary Evaluation: Recommendations by RD: Increase Calorie Intake, Protein supplementation Comments: ensure tid Expected Outcomes/Goals: to meet > 75% est nutr needs Interpretation of weight loss: >5% in 1 month Malnutrition Findings: Body Fat Depletion (Non Severe: Mild Depletion Weight Status: Underweight ETHEL REEVES MD Jun 17, 2018 08:03
[2018-06-17 10:31] VITALS: BP 134/63
--- NOTE | 2018-06-17 12:52 | PDOC ---
Objective: Objective: Per RN - got diarrhea on the wall once, trying advanced diet. Palliative care following - attempted to reach son. Vital Signs: Vital Signs Date Time Temp Pulse Resp B/P (MAP) Pulse Ox O2 Delivery O2 Flow Rate FiO2 06/17/18 10:31 97.6 63 18 134/63 (86) 97 Room Air 4.0 97.6 Labs: Laboratory Tests Test 06/17/18 04:40 Total Bilirubin 5.6 mg/dL Direct Bilirubin 4.6 mg/dL Aspartate Amino Transf (AST/SGOT) 96 U/L Alanine Aminotransferase (ALT/SGPT) 112 U/L Alkaline Phosphatase 619 U/L Total Protein 6.0 g/dL Albumin 2.3 g/dL Imaging: Acute Abd Series 06/16/18 IMPRESSION: 1. Nonspecific air-filled small bowel throughout the abdomen. There is no transition point to suggest obstruction. 2. No acute pulmonary finding. 3. Small nodule overlying the right upper lobe, possibly due to a partially calcified granuloma. The absence of prior studies to confirm stability, sonographic follow-up can be performed to confirm stability. There is also a small nodule overlying the right lower lobe on a single projection which is likely due to a nipple shadow. PE: GEN: NAD NEURO/PSYCH: sleeping, not awakened A/P: Concern for pancreatic malignancy - s/p ERCP w/ brushings (results pending) and stent placement - bili improved Diarrhea - C Diff neg -- Try Imodium. Await PC discussion. ROZINA GONZALEZ Jun 17, 2018 12:52
[2018-06-17] MEDS ORDERED: LOPERAMIDE 2 MG CAPSULE PO PRN (13:00)
--- NOTE | 2018-06-17 14:11 | NUR ---
SW following. Discussed with RN. Palliative meeting this afternoon. Still waiting on biopsy results. JULIEN will continue to follow.
[2018-06-17 15:00] VITALS: BP 112/48
--- NOTE | 2018-06-17 16:24 | PDOC2 ---
PALLIATIVE CARE Palliative Care Note Palliative Care Patient alert. Received permission to meet with son Haroon. unable to attend meeting. One son . One daughter live in [place]. Reviewed current medical condition Obstructive jaundice, improved, likely due to malignancy, biopsies pending. Cachexia Mild cognitive deficit H/o prostate cancer, in remission for many years Mild asymptomatic hypoglycemia related to poor intake, on D5 IVF Diarrhea, Biopsy reports still pending. Discussed options for care. Hospice if focus is comfort. Haroon will want his mother to be part of those decisions. May need Oncology input. Discussed Code Status with Haroon and patient. Patient Requests DNR/DNI. Criag is supportive of this decisions. Understands without this attempt likely he would . Patient has always enjoyed outside activity. Would not want to be in a facility. Plan: DNR/DNI. Await Bx. report for final decisions. SAMIRA BUCIO Jun 17, 2018 16:23
--- NOTE | 2018-06-17 18:07 | PATHOLOGY ---
Note [facility] Accession Number: [id number] TESTS RESULT FLAG UNITS REF RANGE LAB Clinician Provided Cytology Information No. of containers..01 Other (Miscellaneous) Source: CBD BRUSHING DIAGNOSIS: 02 CBD BRUSHING SUSPICIOUS. FEW CLUSTERS OF ATYPICAL CELLS IDENTIFIED SUSPICIOUS FOR MALIGNANCY. THE CASE IS ALSO EXAMINED BY DR. WAGNER, CYTOPATHOLOGIST, WHO CONCURS WITH THE DIAGNOSIS. Signed out by: Cholo Marin MD, Pathologist NPI- [id number] Performed by: Kaz Bell, Hearing Aid Mechanic ([facility]) Gross description: 01 30ML, RED TINTED, CLOUDY /LCS FLAG LEGEND: L-Low Normal,H-High Normal,LL-Alert Low,HH-Alert High <-Panic Low,>-Panic High,A-Abnormal,AA-Critical Abnormal Performed at: [facility] [place] [address] [place] [address] Ramon Gusman MD, 02 [facility] [place] [address] [place] [address] Cholo Marin MD, Specimen Comment: A courtesy copy of this report has been sent to Specimen Comment: [phone], , . Specimen Comment: Report sent to Specimen Comment: A duplicate report has been generated due to demographic updates. Performed at: 01 [facility] [address], [place], [place] [id number] MD Ramon Gusman MD Phone: [phone]
[2018-06-17 19:00] VITALS: BP 111/49
[2018-06-17 23:00] VITALS: BP 115/52
[2018-06-18 03:00] VITALS: BP 114/62
[2018-06-18 07:00] VITALS: BP 102/41
--- NOTE | 2018-06-18 08:03 | PDOC ---
SUBJECTIVE Subjective Doing ok this morning. Diarrhea has improved. Says his PO intake is good. Met with palliative care yesterday, agreed to DNR. Will consider options further when is available to discuss hospice. OBJECTIVE Objective Reviewed. Vital Signs Vital Signs Date Time Temp Pulse Resp B/P (MAP) Pulse Ox O2 Delivery O2 Flow Rate FiO2 06/18/18 03:00 97.2 63 20 114/62 (79) 99 97.2 06/17/18 23:00 98.8 82 20 115/52 (73) 91 98.8 06/17/18 20:00 Room Air 06/17/18 19:00 98.8 82 18 111/49 (69) 91 98.8 06/17/18 15:00 98.2 58 16 112/48 (69) 94 Room Air 98.2 06/17/18 10:31 97.6 63 18 134/63 (86) 97 Room Air 4.0 97.6 I & O Intake and Output 06/18/18 07:00 Intake Total 1720 ml Balance 1720 ml Intake Oral 720 ml IV Total 1000 ml # Voids 4 # Bowel Movements 3 PHYSICAL EXAM Physical Exam Alert, cachectic, jaundiced RRR CTAB Abd soft, NT/ND, normal BS No edema Calm, cooperative ASSESSMENT/PLAN Assessment/Plan Obstructive jaundice, improved, likely due to malignancy, brushing shows clusters of atypical cells, concerning for malignancy. Cachexia Mild cognitive deficit H/o prostate cancer, in remission for many years Mild asymptomatic hypoglycemia related to poor intake, on D5 IVF Diarrhea, improved Bili continues to improve s/p stent placement Onc consulted Palliative care following Discussed with nursing to watch PO intake today. If good, could stop IVFs. Nutrition Consultation Dietary Evaluation: Recommendations by RD: Increase Calorie Intake, Protein supplementation Comments: ensure tid Expected Outcomes/Goals: to meet > 75% est nutr needs- goal not met, goal ongoing Interpretation of weight loss: >5% in 1 month Malnutrition Findings: Body Fat Depletion (Non Severe: Mild Depletion Weight Status: Underweight ETHEL REEVES MD Jun 18, 2018 08:03
[2018-06-18] MEDS: POTASSIUM CL 20MEQ D5-0.45NACL 1,000 ML IV SCH (08:45)
--- NOTE | 2018-06-18 09:04 | PDOC2 ---
CONSULT Date of Consult Date of Consult DATE: 06/18/18 TIME: 08:52 Reason for consultation: Concern for pancreas malignancy Consult: Hematology oncology, Dr. Issa Castro History of present illness: He is an 87-year-old -[place] man with a history of prostate cancer remotely, recent weight loss, and abdominopelvic CT on 16 May showing biliary dilatation with a 9 mm pancreas head process and likely benign liver lesions stable since 2010, who was admitted with jaundice, new, acute, painless, associated with the noted pancreas mass, biliary ductal dilatation, and marked elevation in bilirubin, with bilirubin improved after ERCP from 23 down to 5, brushings showed suspicion for malignancy with a few clusters of atypical cells though malignancy has not been confirmed. 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 Past surgical history: Prostatectomy ERCP Right inguinal hernia Left knee surgery Allergies: No known drug allergies Medications: See attached list Social history: , his is in [employer] for knee issues, has a son who helps out, he used to drink scotch in the past, no tobacco, lives at home, states he lives an active lifestyle for his age, would like to know if cancer is present and would like to know his options for treatment as needed Family history: And uncle had prostate cancer Review of systems: Diarrhea with watery foods improved with solid foods, jaundice improved after stenting, weight loss, unsure how much, anorexia, otherwise 10 point review of systems negative Physical exam: Vitals reviewed Gen.: Thin elderly man resting in bed, in no acute distress HEENT: mucous membranes moist, head normocephalic atraumatic Neck: Supple, no lymphadenopathy Lymph nodes: No palpable lymphadenopathy neck or axilla Lungs: Breathing comfortably on room air, no evidence of respiratory distress Heart: Regular rate and rhythm Abdomen: Soft, nontender, nondistended Extremities: No cyanosis or edema Skin: No obvious rashes or skin breakdown Neuro: Alert and oriented 3 Psych: Normal mood and affect Lab reviewed: Total bili 23.9 down to 5.6 Alkaline phosphatase 619 AST 96 ALT 12 Ammonia 14 Lipase normal Creatinine 0.8 INR 1.1 White count 4.2 with 2700 neutrophils, hemoglobin 10 with an MCV of 82, platelet count 167 C. difficile negative Rads reviewed: Ultrasound showed distended gallbladder with sludge and wall thickening and biliary ductal dilatation Abdominopelvic CT 16 May 2018 w/ biliary dilation, 9 mm pancreas head process, likely benign liver lesion similar to 2011, peripheral arterial disease in right common femoral artery, diverticuli, status post prostatectomy Case discussed with: Patient, social work, records reviewed in [facility] and [facility] including labs and radiology and pathology, please see note for summary details. Assessment and Plan: He is an 87-year-old AA man with 9 mm pancreas head process seen on CT, painless jaundice, concern for pancreas cancer, reports of negative CA-19-9, and weight loss. ERCP brushings were suspicious but not diagnostic for malignancy. Concern for pancreas cancer: We'll order a PET scan hopefully to be done tomorrow as an outpatient, do recommend DC today after blood work is obtained, palliative care has evaluated him, he does have mild dementia but is able to answer questions, states he lives a pretty active lifestyle (up and about >1/2 the day he tells me), would want to know if cancer was present and would want to know his options, therefore we will go ahead and proceed with diagnostic work up and offer him a treatment plan and reevaluate need for palliative care as time progresses. Jaundiced: Improved after stenting Anemia: We'll check iron panel and retake History of prostate cancer: We'll check PSA disposition: Recommend DC today, will order PET scan as outpatient and have him follow-up once results available with likely EUS prn Thank you kindly for this consultation, and please do not hesitate to call with any further questions. Social History No ALCOHOL: other (used to drink scotch) Current Problem List Problem List Problems Medical Problems: (1) Elevated transaminase level Status: Acute (2) Jaundice Status: Acute Current Medications Current Medications Current Medications Sodium Chloride 1,000 ml @ 1,000 mls/hr Q1H IV Last administered on 06/12/18at 20:37; Start 06/12/18 at 20:18; Stop 06/12/18 at 21:17; Status DC Ondansetron HCl (Zofran) 4 mg PRN Q8HRS PRN IV NAUSEA/VOMITING; Start 06/12/18 at 21:30; Stop 06/13/18 at 21:29; Status DC Fentanyl Citrate (Fentanyl 2ml Vial) 50 mcg PRN Q1HR PRN IV PAIN; Start at 21:30; Stop 06/13/18 at 21:29; Status DC Sodium Chloride 1,000 ml @ 125 mls/hr Q8H IV Last administered on 06/13/18at 07: 58; Start 06/12/18 at 21:24; Stop 06/13/18 at 08:48; Status DC Midazolam HCl (Versed) 2 mg PRN 1X PRN IV PRIOR TO PROCEDURE; Start 06/13/18 at 08:15; Stop 06/14/18 at 08:14; Status DC Fentanyl Citrate (Fentanyl 2ml Vial) 25 mcg PRN Q5MIN PRN IV X 2 DOSES FOR PAIN ; Start 06/13/18 at 08:15; Stop 06/14/18 at 08:14; Status DC Fentanyl Citrate (Fentanyl 2ml Vial) 50 mcg PRN Q5MIN PRN IV X 2 DOSES FOR PAIN ; Start 06/13/18 at 08:15; Stop 06/14/18 at 08:14; Status DC Ringer's Solution 1,000 ml @ 125 mls/hr Q8H IV Last administered on 06/13/18at 10:12; Start 06/13/18 at 08:04; Stop 06/13/18 at 17:01; Status DC Lidocaine HCl (Xylocaine-Mpf 1% 2ml Vial) 2 ml 1X PRN PRN ID IV START; Start at 08:15; Stop 06/14/18 at 08:14; Status DC Ondansetron HCl (Zofran) 4 mg PRN Q6HRS PRN IV NAUSEA/VOMITING; Start 06/13/18 at 08:45; Stop 06/14/18 at 08:44; Status DC Fentanyl Citrate (Fentanyl 2ml Vial) 25 mcg PRN Q5MIN PRN IV MILD PAIN; Start 06/13/18 at 08:45; Stop 06/14/18 at 08:44; Status UNV Fentanyl Citrate (Fentanyl 2ml Vial) 50 mcg PRN Q5MIN PRN IV MODERATE TO SEVERE PAIN; Start 06/13/18 at 08:45; Stop 06/14/18 at 08:44; Status UNV Morphine Sulfate (Morphine Sulfate) 1 mg PRN Q10MIN PRN IV SEVERE PAIN; Start 06/13/18 at 08:45; Stop 06/14/18 at 08:44; Status DC Ringer's Solution 1,000 ml @ 30 mls/hr Q24H IV ; Start 06/13/18 at 08:42; Stop 06/13/18 at 20:41; Status DC Lidocaine HCl (Xylocaine-Mpf 1% 2ml Vial) 2 ml 1X PRN PRN ID IV START; Start at 08:45; Stop 06/14/18 at 08:44; Status UNV Hydromorphone HCl (Dilaudid) 0.5 mg PRN Q10MIN PRN IV SEV PAIN, Second choice; Start 06/13/18 at 08:45; Stop 06/14/18 at 08:44; Status DC Prochlorperazine Edisylate (Compazine) 5 mg PACU PRN PRN IV NAUSEA, MRX1; Start 06/13/18 at 08:45; Stop 06/14/18 at 08:44; Status DC Potassium Chloride/Dextrose/ Sod Cl 1,000 ml @ 100 mls/hr Q10H IV Last administered on 06/17/18at 22:35; Start 06/13/18 at 08:45 Succinylcholine Chloride (Anectine) 200 mg STK-MED ONCE .ROUTE ; Start 06/13/18 at 10:46; Stop 06/13/18 at 10:47; Status DC Propofol 20 ml @ As Directed STK-MED ONCE IV ; Start 06/13/18 at 10:46; Stop 06/13 at 10:47; Status DC Dexamethasone Sodium Phosphate (Decadron) 20 mg STK-MED ONCE .ROUTE ; Start 06/13 at 10:46; Stop 06/13/18 at 10:47; Status DC Famotidine (Pepcid Vial) 20 mg STK-MED ONCE .ROUTE ; Start 06/13/18 at 10:46; Stop 06/13/18 at 10:47; Status DC Lidocaine HCl (Lidocaine Pf 2% Vial) 5 ml STK-MED ONCE .ROUTE ; Start 06/13/18 at 10:46; Stop 06/13/18 at 10:47; Status DC Ondansetron HCl (Zofran) 4 mg STK-MED ONCE .ROUTE ; Start 06/13/18 at 10:46; Stop 06/13/18 at 10:47; Status DC Iohexol (Omnipaque 300 Mg/ml) 100 ml STK-MED ONCE .ROUTE ; Start 06/13/18 at 10: 48; Stop 06/13/18 at 10:49; Status DC Morphine Sulfate (Morphine Sulfate) 2 mg PRN Q4HRS PRN IV PAIN; Start 06/14/18 at 16:00 Ondansetron HCl (Zofran) 4 mg PRN Q8HRS PRN IV NAUSEA/VOMITING Last administered on 06/14/18at 16:55; Start 06/14/18 at 16:15 Phenylephrine HCl (Karel-Synephrine Inj) 10 mg STK-MED ONCE .ROUTE ; Start at 08:00; Stop 06/16/18 at 08:50; Status DC Loperamide HCl (Imodium) 2 mg PRN TID PRN PO DIARRHEA Last administered on at 14:30; Start 06/17/18 at 13:00 Active Scripts Active Reported Lisinopril 10 Mg Tablet 10 Mg PO DAILY Allergies Allergies: Coded Allergies: No Known Drug Allergies (Unverified , 06/13/18) Vitals VITALS Vital Signs Date Time Temp Pulse Resp B/P (MAP) Pulse Ox O2 Delivery O2 Flow Rate FiO2 06/18/18 07:00 98.1 72 17 102/41 (61) 98 Room Air 98.1 06/17/18 10:31 4.0 Labs Labs Laboratory Tests Test 06/16/18 20:56 06/16/18 21:37 06/16/18 22:10 06/17/18 04:40 Glucose (Fingerstick) 50 mg/dL (70-99) 55 mg/dL (70-99) 56 mg/dL (70-99) Total Bilirubin 5.6 mg/dL (0.2-1.0) Direct Bilirubin 4.6 mg/dL (0.0-0.2) Aspartate Amino Transf (AST/SGOT) 96 U/L (15-37) Alanine Aminotransferase (ALT/SGPT) 112 U/L (16-63) Alkaline Phosphatase 619 U/L (46-116) Total Protein 6.0 g/dL (6.4-8.2) Albumin 2.3 g/dL (3.4-5.0) ISSA CASTRO MD Jun 18, 2018 09:04
[2018-06-18 10:11] LABS: ALBUMIN 2.1 g/dL (3.4-5.0); ALBUMIN/GLOBULIN RATIO 0.6 (1.0-1.7); CALCIUM 7.3 mg/dL (8.5-10.1); CREATININE 0.7 mg/dL (0.7-1.3); GFR 129.7; POTASSIUM 3.7 mmol/L (3.5-5.1); TOTAL BILIRUBIN 4.6 mg/dL (0.2-1.0); TOTAL PROTEIN 5.7 g/dL (6.4-8.2)
--- NOTE | 2018-06-18 10:50 | NUR ---
SW following. Discussed with RN, possible discharge today so pt can get a PET scan outpatient tomorrow (06/19/18). SW will continue to follow.
[2018-06-18 11:00] VITALS: BP 108/47
--- NOTE | 2018-06-18 13:32 | PDOC ---
Subjective: Subjective: Says he ate lunch okay and gets to go home. Objective: Objective: Reviewed palliative care note - now DNR, possible Hospice discussion later. Vital Signs: Vital Signs Date Time Temp Pulse Resp B/P (MAP) Pulse Ox O2 Delivery O2 Flow Rate FiO2 06/18/18 07:00 98.1 72 17 102/41 (61) 98 Room Air 98.1 06/17/18 10:31 4.0 Labs: Laboratory Tests Test 06/18/18 09:00 Reticulocyte Count (auto) 1.6 % Sodium Level 138 mmol/L Potassium Level 3.7 mmol/L Chloride Level 104 mmol/L Carbon Dioxide Level 29 mmol/L Anion Gap 5 Blood Urea Nitrogen 3 mg/dL Creatinine 0.7 mg/dL Estimated GFR (Cockcroft-Gault) 129.7 BUN/Creatinine Ratio 4 Glucose Level 84 mg/dL Calcium Level 7.3 mg/dL Iron Level 33 ug/dL Total Iron Binding Capacity 156 ug/dL Iron Saturation 21 % Ferritin 467 ng/mL Total Bilirubin 4.6 mg/dL Aspartate Amino Transf (AST/SGOT) 64 U/L Alanine Aminotransferase (ALT/SGPT) 84 U/L Alkaline Phosphatase 509 U/L Total Protein 5.7 g/dL Albumin 2.1 g/dL Albumin/Globulin Ratio 0.6 Prostate Specific Antigen 0.91 ng/mL PE: GEN: NAD LUNGS: room air ABD: S/ND/NT NEURO/PSYCH: pleasant A/P: Obstructive jaundice, CBD brushings suspicious for malignancy -- Note plans per oncology including labs, outpt PET, and possible EUS. ROZINA GONZALEZ Jun 18, 2018 13:32
[2018-06-18 15:00] VITALS: BP 132/70
[2018-06-18 19:00] VITALS: BP 105/54
[2018-06-18 23:00] VITALS: BP 114/53
[2018-06-19 03:00] VITALS: BP 99/53
[2018-06-19 07:00] VITALS: BP 106/41
[2018-06-19 07:12] LABS: ALBUMIN/GLOBULIN RATIO 0.6 (1.0-1.7); CALCIUM 7.2 mg/dL (8.5-10.1); CREATININE 0.8 mg/dL (0.7-1.3); GFR 111.2; POTASSIUM 3.7 mmol/L (3.5-5.1); TOTAL BILIRUBIN 4.2 mg/dL (0.2-1.0); TOTAL PROTEIN 5.5 g/dL (6.4-8.2)
--- NOTE | 2018-06-19 08:19 | DISCH ---
DISCHARGE WITH HOME HEALTH DISCHARGE INFORMATION: Final Diagnosis: Problems Medical Problems: (1) Elevated transaminase level Status: Acute (2) Jaundice Status: Acute Condition on Discharge: Stable CODE STATUS: Code Status: DNR/DNI HOME HEALTH: Face to Face: I certify this patient is under my care and that I, or a nurse practitioner or physician's inside sales assistant working with me, had a face to face encounter that meets the physician face to face encounter requirements with this patient on []. Physical Therapy For: Evalulation/Treatment Occupational Therapy For: Evaluation/Treatment POST DISCHARGE ORDERS: DIET AFTER DISCHARGE: Regular CERTIFICATION STATEMENT: Certification Statement: Certification Statement: Based on the above finding, I certify that this patient is confined to the home and needs intermittent alf care, physical therapy and/or speech therapy, or continues to need occupational therapy.~ This patient is under my care, and I have initiated the establishment of the plan of care.~ This patient will be followed by myself or a community physician who will periodically review the plan of care. Home Meds Reported Medications Lisinopril (LISINOPRIL) 10 Mg Tablet, 10 MG PO DAILY for FOR HYPERTENSION, #30 TAB 0 Refills 06/16/18 Discontinued Reported Medications [Unable to remember] No Conflict Check 06/13/18 Info (NO KNOWN MEDICATIONS PRIOR TO ADMISSTION) Each, 1 EACH , EACH 07/29/15 ETHEL REEVES MD Jun 19, 2018 08:19
--- NOTE | 2018-06-19 09:10 | NUR ---
SW following for discharge planning. Discussed with RN, PT/OT to work with pt today. RN hoping for discharge to PET scan today. Possibility of home health. SW will continue to follow.
[2018-06-19 11:00] VITALS: BP 134/62
--- NOTE | 2018-06-19 12:43 | PDOC ---
SUBJECTIVE Subjective Doing ok this morning. No pain or diarrhea. Eating and drinking well. No new concerns. OBJECTIVE Objective Reviewed. Vital Signs Vital Signs Date Time Temp Pulse Resp B/P (MAP) Pulse Ox O2 Delivery O2 Flow Rate FiO2 06/19/18 11:00 97.9 73 15 134/62 (86) 100 Room Air 97.9 06/19/18 08:13 Room Air 06/19/18 07:00 98.3 54 18 106/41 (62) 97 Room Air 98.3 06/19/18 03:00 98.6 61 18 99/53 (68) 96 98.6 06/18/18 23:00 98.5 70 18 114/53 (73) 97 98.5 06/18/18 20:00 Room Air 06/18/18 19:00 98.4 68 18 105/54 (71) 100 98.4 06/18/18 15:00 98.3 70 15 132/70 (90) 96 Room Air 98.3 I & O Intake and Output 06/19/18 06:59 Intake Total 120 ml Output Total 1200 ml Balance -1080 ml Intake Oral 120 ml Output Urine Total 1200 ml PHYSICAL EXAM Physical Exam Alert, cachectic, jaundiced RRR CTAB Abd soft, NT/ND, normal BS No edema Calm, cooperative ASSESSMENT/PLAN Assessment/Plan Obstructive jaundice, improved, likely due to malignancy, brushing shows clusters of atypical cells, concerning for malignancy. Cachexia Mild cognitive deficit H/o prostate cancer, in remission for many years Mild asymptomatic hypoglycemia related to poor intake, on D5 IVF Diarrhea, improved Bili continues to improve s/p stent placement Onc plans for outpt PET scan at discharge PT/OT recommend SNF and pt's family is not able to help him at home now (son going out of town, in SNF herself). Will dc when placement is available. COMMENT Lab Laboratory Tests Test 06/19/18 05:15 Sodium Level 137 mmol/L (136-145) Potassium Level 3.7 mmol/L (3.5-5.1) Chloride Level 103 mmol/L (98-107) Carbon Dioxide Level 27 mmol/L (21-32) Anion Gap 7 (6-14) Blood Urea Nitrogen 7 mg/dL (8-26) Creatinine 0.8 mg/dL (0.7-1.3) Estimated GFR (Cockcroft-Gault) 111.2 BUN/Creatinine Ratio 9 (6-20) Glucose Level 76 mg/dL (70-99) Calcium Level 7.2 mg/dL (8.5-10.1) Total Bilirubin 4.2 mg/dL (0.2-1.0) Aspartate Amino Transf (AST/SGOT) 56 U/L (15-37) Alanine Aminotransferase (ALT/SGPT) 69 U/L (16-63) Alkaline Phosphatase 447 U/L (46-116) Total Protein 5.5 g/dL (6.4-8.2) Albumin 2.0 g/dL (3.4-5.0) Albumin/Globulin Ratio 0.6 (1.0-1.7) Nutrition Consultation Dietary Evaluation: Recommendations by RD: Increase Calorie Intake, Protein supplementation Comments: ensure tid Expected Outcomes/Goals: to meet > 75% est nutr needs- goal not met, goal ongoing Interpretation of weight loss: >5% in 1 month Malnutrition Findings: Body Fat Depletion (Non Severe: Mild Depletion Weight Status: Underweight ETHEL REEVES MD Jun 19, 2018 12:43
--- NOTE | 2018-06-19 12:47 | SNU/HH DC ---
DISCHARGE ORDERS DISCHARGE INFORMATION: FINAL DIAGNOSIS Problems Medical Problems: (1) Elevated transaminase level Status: Acute (2) Jaundice Status: Acute CONDITION ON DISCHARGE: Stable CODE STATUS: Code Status: DNR/DNI RETIREMENT: SNF STAY <30 DAYS: Yes POST DISCHARGE ORDERS: DIET AFTER DISCHARGE: Regular TREATMENT/EQUIPMENT ORDERS: Physical Therapy For: Evalulation/Treatment Occupational Therapy For: Evaluation/Treatment DISCHARGE MEDICATIONS: Home Meds Reported Medications Lisinopril (LISINOPRIL) 10 Mg Tablet, 10 MG PO DAILY for FOR HYPERTENSION, #30 TAB 0 Refills 06/16/18 Discontinued Reported Medications [Unable to remember] No Conflict Check 06/13/18 Info (NO KNOWN MEDICATIONS PRIOR TO ADMISSTION) Each, 1 EACH , EACH 07/29/15 ETHEL REEVES MD Jun 19, 2018 12:47
--- NOTE | 2018-06-19 13:00 | PDOC ---
Subjective: Subjective: No complaints, not sure what kind of meat is on his lunch tray, wants to go home. Objective: Vital Signs: Vital Signs Date Time Temp Pulse Resp B/P (MAP) Pulse Ox O2 Delivery O2 Flow Rate FiO2 06/19/18 11:00 97.9 73 15 134/62 (86) 100 Room Air 97.9 06/18/18 08:00 4.0 Labs: Laboratory Tests Test 06/19/18 05:15 Sodium Level 137 mmol/L Potassium Level 3.7 mmol/L Chloride Level 103 mmol/L Carbon Dioxide Level 27 mmol/L Anion Gap 7 Blood Urea Nitrogen 7 mg/dL Creatinine 0.8 mg/dL Estimated GFR (Cockcroft-Gault) 111.2 BUN/Creatinine Ratio 9 Glucose Level 76 mg/dL Calcium Level 7.2 mg/dL Total Bilirubin 4.2 mg/dL Aspartate Amino Transf (AST/SGOT) 56 U/L Alanine Aminotransferase (ALT/SGPT) 69 U/L Alkaline Phosphatase 447 U/L Total Protein 5.5 g/dL Albumin 2.0 g/dL Albumin/Globulin Ratio 0.6 PE: GEN: NAD, up to chair LUNGS: CTAB HEART: RRR ABD: NABS, S/ND/NT NEURO/PSYCH: A & O 3 A/P: Obstructive jaundice, CBD brushings suspicious for malignancy -- Awaiting DC plans. ROZINA GONZALEZ Jun 19, 2018 13:00
--- NOTE | 2018-06-19 13:43 | NUR ---
JULIEN following. RN advised PT/OT stated pt can't go home safely, there isn't anyone who can take care of pt at home. RN advised pt wants to go to SNU where his is at [facility], JULIEN phoned and faxed referral , fax: [phone]. SW will continue to follow. RN notified.
[2018-06-19 15:00] VITALS: BP 117/62
[2018-06-19 19:00] VITALS: BP 114/42
[2018-06-19 22:55] VITALS: BP 121/57
[2018-06-20 03:00] VITALS: BP 126/52
[2018-06-20 07:30] VITALS: BP 106/58
--- NOTE | 2018-06-20 08:13 | PDOC ---
SUBJECTIVE Subjective Doing well this AM. No concerns. OBJECTIVE Objective Reviewed. Vital Signs Vital Signs Date Time Temp Pulse Resp B/P (MAP) Pulse Ox O2 Delivery O2 Flow Rate FiO2 06/20/18 07:25 Room Air 06/20/18 03:00 98.5 68 16 126/52 (76) 98 Room Air 98.5 06/19/18 22:55 98.7 65 18 121/57 (78) 96 Room Air 4.0 98.7 06/19/18 20:03 Room Air 06/19/18 19:00 97.6 64 18 114/42 (66) 96 Room Air 4.0 97.6 06/19/18 15:00 98.2 60 16 117/62 (80) 100 Room Air 98.2 06/19/18 11:00 97.9 73 15 134/62 (86) 100 Room Air 97.9 06/19/18 08:13 Room Air I & O Intake and Output 06/20/18 07:00 Intake Total 0 ml Output Total 300 ml Balance -300 ml Intake Oral 0 ml Output Urine Total 300 ml PHYSICAL EXAM Physical Exam Alert, cachectic RRR CTAB Abd soft, NT/ND, normal BS No edema Calm, cooperative ASSESSMENT/PLAN Assessment/Plan Obstructive jaundice, improved, likely due to malignancy, brushing shows clusters of atypical cells, concerning for malignancy. Cachexia Mild cognitive deficit H/o prostate cancer, in remission for many years Mild asymptomatic hypoglycemia, stable on last check Diarrhea, resolved Bili continues to improve s/p stent placement Onc plans for outpt PET scan at discharge PT/OT recommend SNF and pt's family is not able to help him at home now (son going out of town, in SNF herself). Will dc when placement is available. Nutrition Consultation Dietary Evaluation: Recommendations by RD: Increase Calorie Intake, Protein supplementation Comments: ensure tid Expected Outcomes/Goals: to meet > 75% est nutr needs- goal not met, goal ongoing Interpretation of weight loss: >5% in 1 month Malnutrition Findings: Body Fat Depletion (Non Severe: Mild Depletion Weight Status: Underweight ETHEL REEVES MD Jun 20, 2018 08:13
--- NOTE | 2018-06-20 08:39 | PDOC ---
SUBJECTIVE Subjective S: Eating and drinking okay per him, awaiting placement for discharge, his is doing okay he tells me O: Physical exam: Gen.: Elderly man, resting in bed Lungs: Breathing comfortably Psychiatric: Pleasant mood and affect Labs: Ferritin 467, iron sat 21%, retic normal, T bili 4.2, CA-19-9 of 8, PSA 0.9 Assessment and Plan: He is an 87-year-old AA man with 9 mm pancreas head process seen on CT, painless jaundice, concern for pancreas cancer, reports of negative CA-19-9, and weight loss. ERCP brushings were suspicious but not diagnostic for malignancy. PET scan is ordered for June. He is awaiting placement. Concern for pancreas cancer: PET pending for next , he will follow-up with us afterwards for further recommendations Jaundice: Improved after stenting Anemia: Hb of 10, follow prn History of prostate cancer: PSA 0.9 disposition: Waiting placement, will have PET scan as outpatient and have him follow-up once results available with likely EUS prn aircraft Thank you kindly, and please do not hesitate to call with further questions. OBJECTIVE Vital Signs Vital Signs Date Time Temp Pulse Resp B/P (MAP) Pulse Ox O2 Delivery O2 Flow Rate FiO2 06/20/18 07:30 98.3 53 18 106/58 (74) 100 Room Air 98.3 06/20/18 07:25 Room Air 06/20/18 03:00 98.5 68 16 126/52 (76) 98 Room Air 98.5 06/19/18 22:55 98.7 65 18 121/57 (78) 96 Room Air 4.0 98.7 06/19/18 20:03 Room Air 06/19/18 19:00 97.6 64 18 114/42 (66) 96 Room Air 4.0 97.6 06/19/18 15:00 98.2 60 16 117/62 (80) 100 Room Air 98.2 06/19/18 11:00 97.9 73 15 134/62 (86) 100 Room Air 97.9 I & O Intake and Output 06/20/18 07:00 Intake Total 0 ml Output Total 300 ml Balance -300 ml Intake Oral 0 ml Output Urine Total 300 ml Nutrition Consultation Dietary Evaluation: Recommendations by RD: Increase Calorie Intake, Protein supplementation Comments: ensure tid Expected Outcomes/Goals: to meet > 75% est nutr needs- goal not met, goal ongoing Interpretation of weight loss: >5% in 1 month Malnutrition Findings: Body Fat Depletion (Non Severe: Mild Depletion Weight Status: Underweight ISSA MULLINS MD Jun 20, 2018 08:39
--- NOTE | 2018-06-20 10:22 | PDOC ---
Subjective: Subjective: No complaints, enjoying breakfast. Objective: Vital Signs: Vital Signs Date Time Temp Pulse Resp B/P (MAP) Pulse Ox O2 Delivery O2 Flow Rate FiO2 06/20/18 07:30 98.3 53 18 106/58 (74) 100 Room Air 98.3 06/19/18 22:55 4.0 PE: GEN: NAD, sittign on ege of bed eating eggs LUNGS: CTAB HEART: RRR ABD: S/ND/NT NEURO/PSYCH: A & O 3 A/P: Obstructive jaundice s/p ERCP, CBD brushings suspicious for malignancy -- Stable GI-gordillo. Awaiting DC plans. ROZINA GONZALEZ Jun 20, 2018 10:22
--- NOTE | 2018-06-20 10:54 | NUR ---
SW following. Discussed with RN, pt is ready to discharge pending SNU placement. [facility] to determine status of referral. SW left voicemail for the [facility] ([phone]), requesting call back re status. RN notified. SW will continue to follow.
[2018-06-20 11:00] VITALS: BP 121/52
[2018-06-20 14:36] VITALS: BP 119/55
--- NOTE | 2018-06-20 15:39 | NUR ---
JULIEN following. Pt has been accepted at [facility]. Pt will be picked up at 1730. RN notified.
--- NOTE | 2018-06-20 17:44 | PDOC3 ---
Discharge Summary Date of Admission: Jun 13, 2018 Date of Discharge: Jun 20, 2018 Follow-Up: Other (f/u with Dr. Reeves about 2 weeks. f/u with Dr. Castro after PET) Admitting Diagnosis comment: Obstructive jaundice 2/2 possible pancreatic cancer Cachexia FINAL DIAGNOSIS Obstructive jaundice, improved, likely due to malignancy, brushing shows clusters of atypical cells Cachexia Mild cognitive deficit H/o prostate cancer, in remission for many years Brief Hospital Course Mr. Hatfield is an 87 year old male with PMH of HTN, mild cognitive deficit, prostate cancer (treated many years ago) who was admitted for obstructive jaundice with initial total bili ~25 with direct bili ~18. Alk phos, AST/ALT was also remarkably elevated. He has had several weeks of weight loss, decreased appetite, fatigue. CT was ordered as outpt and showed possible pancreatic head mass. Labs were found to be remarkably elevated and he was admitted for further evaluation. CA 19-9 done prior to admission was normal. He was seen by GI and ERCP was performed and stent was placed. He had significant improvement of bili after the stent placement. Brushings were performed and found to have clusters of atypical cells concerning for malignancy, but nondiagnostic. Dr. Castro was consulted and recommended PET as outpt, which has been scheduled since June 26. Pt was evaluated by PT/OT and was discharged to SNF. Prior to admission, he was on lisinopril, but this was held due to mild hypotension during admission, so it was discontinued at discharge. He will follow up with myself in about 2 weeks after his PET and follow up with Dr. Castro. CONDITION AT DISCHARGE: Stable Discharge Medications Current Medications Sodium Chloride 1,000 ml @ 1,000 mls/hr Q1H IV Last administered on 06/12/18at 20:37; Start 06/12/18 at 20:18; Stop 06/12/18 at 21:17; Status DC Ondansetron HCl (Zofran) 4 mg PRN Q8HRS PRN IV NAUSEA/VOMITING; Start 06/12/18 at 21:30; Stop 06/13/18 at 21:29; Status DC Fentanyl Citrate (Fentanyl 2ml Vial) 50 mcg PRN Q1HR PRN IV PAIN; Start at 21:30; Stop 06/13/18 at 21:29; Status DC Sodium Chloride 1,000 ml @ 125 mls/hr Q8H IV Last administered on 06/13/18at 07: 58; Start 06/12/18 at 21:24; Stop 06/13/18 at 08:48; Status DC Midazolam HCl (Versed) 2 mg PRN 1X PRN IV PRIOR TO PROCEDURE; Start 06/13/18 at 08:15; Stop 06/14/18 at 08:14; Status DC Fentanyl Citrate (Fentanyl 2ml Vial) 25 mcg PRN Q5MIN PRN IV X 2 DOSES FOR PAIN ; Start 06/13/18 at 08:15; Stop 06/14/18 at 08:14; Status DC Fentanyl Citrate (Fentanyl 2ml Vial) 50 mcg PRN Q5MIN PRN IV X 2 DOSES FOR PAIN ; Start 06/13/18 at 08:15; Stop 06/14/18 at 08:14; Status DC Ringer's Solution 1,000 ml @ 125 mls/hr Q8H IV Last administered on 06/13/18at 10:12; Start 06/13/18 at 08:04; Stop 06/13/18 at 17:01; Status DC Lidocaine HCl (Xylocaine-Mpf 1% 2ml Vial) 2 ml 1X PRN PRN ID IV START; Start at 08:15; Stop 06/14/18 at 08:14; Status DC Ondansetron HCl (Zofran) 4 mg PRN Q6HRS PRN IV NAUSEA/VOMITING; Start 06/13/18 at 08:45; Stop 06/14/18 at 08:44; Status DC Fentanyl Citrate (Fentanyl 2ml Vial) 25 mcg PRN Q5MIN PRN IV MILD PAIN; Start 06/13/18 at 08:45; Stop 06/14/18 at 08:44; Status UNV Fentanyl Citrate (Fentanyl 2ml Vial) 50 mcg PRN Q5MIN PRN IV MODERATE TO SEVERE PAIN; Start 06/13/18 at 08:45; Stop 06/14/18 at 08:44; Status UNV Morphine Sulfate (Morphine Sulfate) 1 mg PRN Q10MIN PRN IV SEVERE PAIN; Start 06/13/18 at 08:45; Stop 06/14/18 at 08:44; Status DC Ringer's Solution 1,000 ml @ 30 mls/hr Q24H IV ; Start 06/13/18 at 08:42; Stop 06/13/18 at 20:41; Status DC Lidocaine HCl (Xylocaine-Mpf 1% 2ml Vial) 2 ml 1X PRN PRN ID IV START; Start at 08:45; Stop 06/14/18 at 08:44; Status UNV Hydromorphone HCl (Dilaudid) 0.5 mg PRN Q10MIN PRN IV SEV PAIN, Second choice; Start 06/13/18 at 08:45; Stop 06/14/18 at 08:44; Status DC Prochlorperazine Edisylate (Compazine) 5 mg PACU PRN PRN IV NAUSEA, MRX1; Start 06/13/18 at 08:45; Stop 06/14/18 at 08:44; Status DC Potassium Chloride/Dextrose/ Sod Cl 1,000 ml @ 100 mls/hr Q10H IV Last administered on 06/17/18at 22:35; Start 06/13/18 at 08:45; Stop 06/18/18 at 16:07; Status DC Succinylcholine Chloride (Anectine) 200 mg STK-MED ONCE .ROUTE ; Start 06/13/18 at 10:46; Stop 06/13/18 at 10:47; Status DC Propofol 20 ml @ As Directed STK-MED ONCE IV ; Start 06/13/18 at 10:46; Stop 06/13 at 10:47; Status DC Dexamethasone Sodium Phosphate (Decadron) 20 mg STK-MED ONCE .ROUTE ; Start 06/13 at 10:46; Stop 06/13/18 at 10:47; Status DC Famotidine (Pepcid Vial) 20 mg STK-MED ONCE .ROUTE ; Start 06/13/18 at 10:46; Stop 06/13/18 at 10:47; Status DC Lidocaine HCl (Lidocaine Pf 2% Vial) 5 ml STK-MED ONCE .ROUTE ; Start 06/13/18 at 10:46; Stop 06/13/18 at 10:47; Status DC Ondansetron HCl (Zofran) 4 mg STK-MED ONCE .ROUTE ; Start 06/13/18 at 10:46; Stop 06/13/18 at 10:47; Status DC Iohexol (Omnipaque 300 Mg/ml) 100 ml STK-MED ONCE .ROUTE ; Start 06/13/18 at 10: 48; Stop 06/13/18 at 10:49; Status DC Morphine Sulfate (Morphine Sulfate) 2 mg PRN Q4HRS PRN IV PAIN; Start 06/14/18 at 16:00 Ondansetron HCl (Zofran) 4 mg PRN Q8HRS PRN IV NAUSEA/VOMITING Last administered on 06/14/18at 16:55; Start 06/14/18 at 16:15 Phenylephrine HCl (Karel-Synephrine Inj) 10 mg STK-MED ONCE .ROUTE ; Start at 08:00; Stop 06/16/18 at 08:50; Status DC Loperamide HCl (Imodium) 2 mg PRN TID PRN PO DIARRHEA Last administered on at 14:30; Start 06/17/18 at 13:00 Active Scripts Active No Active Prescriptions or Reported Medications Vital Signs Vital Signs Date Time Temp Pulse Resp B/P (MAP) Pulse Ox O2 Delivery O2 Flow Rate FiO2 06/20/18 14:36 97.9 60 18 119/55 (76) 95 Room Air 97.9 06/19/18 22:55 4.0 Labs Laboratory Tests Test 06/19/18 05:15 Sodium Level 137 mmol/L (136-145) Potassium Level 3.7 mmol/L (3.5-5.1) Chloride Level 103 mmol/L (98-107) Carbon Dioxide Level 27 mmol/L (21-32) Anion Gap 7 (6-14) Blood Urea Nitrogen 7 mg/dL (8-26) Creatinine 0.8 mg/dL (0.7-1.3) Estimated GFR (Cockcroft-Gault) 111.2 BUN/Creatinine Ratio 9 (6-20) Glucose Level 76 mg/dL (70-99) Calcium Level 7.2 mg/dL (8.5-10.1) Total Bilirubin 4.2 mg/dL (0.2-1.0) Aspartate Amino Transf (AST/SGOT) 56 U/L (15-37) Alanine Aminotransferase (ALT/SGPT) 69 U/L (16-63) Alkaline Phosphatase 447 U/L (46-116) Total Protein 5.5 g/dL (6.4-8.2) Albumin 2.0 g/dL (3.4-5.0) Albumin/Globulin Ratio 0.6 (1.0-1.7) Allergies Allergies Coded Allergies Type Severity Reaction Last Updated Verified No Known Drug Allergies 06/13/18 No Disposition/Orders: D/C to Another Facility (SNF) ETHEL REEVES MD Jun 20, 2018 17:44
--- NOTE | 2018-06-20 17:54 | NUR ---
pt transferred to transitional care. report given to BYRON Hernandez. Meds, follow up, pt activity reviewed. pt stable upon DC
== END 2018-06-20 17:30 | DRG 445 ==
LOC: ER 19:06 → 5 SOUTH 21:28
PROVIDERS: ADMIT Family Medicine; ATTEND Family Medicine
PROC: 0F798DZ Dilation of Common Bile Duct with Intraluminal Device, Via Natural or Artificial Opening Endoscopic (ICD-10-PCS; principal; 2018-06-13 10:00)
PROC: BF111ZZ Fluoroscopy of Biliary and Pancreatic Ducts using Low Osmolar Contrast (ICD-10-PCS; 2018-06-13 10:00)
PROC: 0FD98ZX Extraction of Common Bile Duct, Via Natural or Artificial Opening Endoscopic, Diagnostic (ICD-10-PCS; 2018-06-13 10:00)
DX: K83.1 Obstruction of bile duct (principal); K56.609 Unspecified intestinal obstruction, unspecified as to partial versus complete obstruction; R64 Cachexia; Z68.1 Body mass index [BMI] 19.9 or less, adult; I10 Essential (primary) hypertension; D50.9 Iron deficiency anemia, unspecified; K57.90 Diverticulosis of intestine, part unspecified, without perforation or abscess without bleeding; E16.2 Hypoglycemia, unspecified; F03.90 Unspecified dementia, unspecified severity, without behavioral disturbance, psychotic disturbance, mood disturbance, and anxiety; Z66 Do not resuscitate; Z80.42 Family history of malignant neoplasm of prostate; Z85.46 Personal history of malignant neoplasm of prostate; Z90.79 Acquired absence of other genital organ(s); R63.6 Underweight
CPT/HCPCS: 36415; 43262; 43274; 43277; 74018; 74022; 74328; 76705; 80048; 80053; 80076; 82140; 82150; 82248; 82728; 82962; 83540; 83550; 83690; 85007; 85025; 85045; 85610; 86301; 87493; 88104; 88112; 93005; 96360; 97110; 97116; 97162; 97165; 97535; 99285; C1713; C1757; C1769; G0103; J0330; J1100; J2001; J2405; J2704; J3490; J7030; Q9967; J7120